=== PATIENT | male | born 1950 | race Caucasian/White ===

== ENCOUNTER → 2018-01-27 10:08 | Outpatient (CLI) | payer MEDICARE, BC, SELFPAY ==
[2018-01-27 11:36] LABS: Add Manual Diff / Slide Review NO; Basophils Percent Auto 0.8 % (0-2); Eosinophils Percent Auto 4.1 % (2-4); Hematocrit 43.6 % (41-53); Hemoglobin 14.7 g/dL (13.5-17.5); Mean Corpuscular HGB Conc 33.8 % (30-36); Mean Corpuscular Hemoglobin 31.3 PG (26-34); Mean Corpuscular Volume 92.3 fL (80-100); Monocytes Percent Auto 10.3 % (3-14); Neutrophils Absolute Auto 3000 /uL (3000-5900); Neutrophils Percent Auto 43.8 % (50-75); Platelet Count 208 X10^3/uL (150-400); Red Blood Cell Count 4.72 X10^6/uL (4.5-5.9); Red Cell Distribution Width 13.5 % (11.6-14.8); White Blood Cell Count 6.8 X10^3/uL (4.5-11.0)
[2018-01-27 11:51] LABS: Hemoglobin A1C% w Est Avg Glu 6.9 % (4.0-6.0)
[2018-01-27 11:54] LABS: Alanine Aminotransferase 47 IU/L (21-72); Albumin 4.6 g/dL (3.5-5.0); Albumin Globulin Ratio 1.9 (1.0-2.8); Alkaline Phosphatase 71 U/L (38-126); Aspartate Aminotransferase 27 IU/L (17-59); BUN Creatinine Ratio 23.3 (6-22); Bilirubin Total 0.6 mg/dL (0.2-1.3); Blood Urea Nitrogen 21 mg/dL (9-20); Calcium 9.1 mg/dL (8.4-10.2); Carbon Dioxide 25 mmol/L (22-32); Chloride 104 mmol/L (98-107); Cholesterol 148 mg/dL (140-199); Estimated Glomerular Filt Rate > 60.0 mL/min (>60); Globulin 2.4 g/dL (1.7-4.1); Glucose 151 mg/dL (80-110); HDL Cholesterol 41 mg/dL (40-60); HEMOLYSIS < 15 (0-50); LDL Cholesterol Calculated 87 mg/dL (<100); Potassium 4.3 mmol/L (3.4-5.1); Sodium 143 mmol/L (137-145); Triglycerides 102 mg/dL (35-150)
[2018-01-27 13:25] LABS: Thyroid Stimulating Hormone 1.37 uIU/mL (0.47-4.68)
== END ==
PROVIDERS: PCP Family Medicine; Visit Provider Family Medicine
DX: E11.9 Type 2 diabetes mellitus without complications (principal)
CPT/HCPCS: 36415; 80053; 80061; 83036; 84443; 85025; G0103

== ENCOUNTER → 2018-06-10 10:20 | Outpatient (CLI) | payer MEDICARE, OTHER, SELFPAY ==
[2018-06-10 11:28] LABS: Hemoglobin A1C% w Est Avg Glu 6.7 % (4.0-6.0)
== END ==
PROVIDERS: PCP Family Medicine; Visit Provider Family Medicine
DX: E11.9 Type 2 diabetes mellitus without complications (principal)
CPT/HCPCS: 36415; 83036

== ENCOUNTER → 2019-09-04 09:18 | Outpatient (CLI) | payer MEDICARE, OTHER, SELFPAY ==
[2019-09-04 10:59] LABS: Hemoglobin A1C% w Est Avg Glu 12.3 % (4.0-6.0)
[2019-09-04 11:03] LABS: BUN Creatinine Ratio 22.2 (6-22); Blood Urea Nitrogen 16 mg/dL (9-20); Calcium 9.1 mg/dL (8.4-10.2); Carbon Dioxide 24 mmol/L (22-32); Chloride 100 mmol/L (98-107); Cholesterol 163 mg/dL (140-199); Estimated Glomerular Filt Rate > 60.0 mL/min (>60); Glucose 347 mg/dL (80-110); HDL Cholesterol 31 mg/dL (40-60); HEMOLYSIS < 15 (0-50); LDL Cholesterol Calculated 103 mg/dL (<100); Potassium 4.9 mmol/L (3.4-5.1); Sodium 134 mmol/L (137-145); Triglycerides 147 mg/dL (35-150)
[2019-09-04 11:32] LABS: Prostate Specific Antigen Scrn 0.556 ng/mL (0.1-4.0)
== END ==
PROVIDERS: PCP Family Medicine; Referring Provider Family Medicine; Visit Provider Family Medicine
DX: Z12.5 Encounter for screening for malignant neoplasm of prostate (principal); Z13.220 Encounter for screening for lipoid disorders; E11.9 Type 2 diabetes mellitus without complications; E78.2 Mixed hyperlipidemia; I10 Essential (primary) hypertension
CPT/HCPCS: 36415; 80048; 80061; 83036; G0103

== ENCOUNTER → 2019-11-14 09:48 | Outpatient (CLI) | payer MEDICARE, OTHER, SELFPAY ==
[2019-11-14 12:14] LABS: BUN Creatinine Ratio 20.5 (6-22); Blood Urea Nitrogen 17 mg/dL (9-20); Calcium 9.8 mg/dL (8.4-10.2); Carbon Dioxide 25 mmol/L (22-32); Chloride 102 mmol/L (98-107); Estimated Glomerular Filt Rate > 60.0 mL/min (>60); Glucose 114 mg/dL (80-110); HEMOLYSIS < 15 (0-50); Potassium 4.5 mmol/L (3.4-5.1); Sodium 136 mmol/L (137-145)
[2019-11-14 12:16] LABS: Hemoglobin A1C% w Est Avg Glu 7.3 % (4.0-6.0)
== END ==
PROVIDERS: PCP Family Medicine; Referring Provider Family Medicine; Visit Provider Family Medicine
DX: E11.9 Type 2 diabetes mellitus without complications (principal)
CPT/HCPCS: 36415; 80048; 83036

== ENCOUNTER → 2020-02-07 11:44 | Outpatient (CLI) | payer MEDICARE, OTHER, SELFPAY ==
[2020-02-07 12:48] LABS: Hemoglobin A1C% w Est Avg Glu 5.6 % (4.0-6.0)
[2020-02-07 13:12] LABS: BUN Creatinine Ratio 18.7 (6-22); Blood Urea Nitrogen 17 mg/dL (9-20); Calcium 9.8 mg/dL (8.4-10.2); Carbon Dioxide 23 mmol/L (22-32); Chloride 102 mmol/L (98-107); Estimated Glomerular Filt Rate > 60.0 mL/min (>60); Glucose 112 mg/dL (80-110); HEMOLYSIS < 15 (0-50); Potassium 4.7 mmol/L (3.4-5.1); Sodium 137 mmol/L (137-145)
== END ==
PROVIDERS: PCP Family Medicine; Referring Provider Family Medicine; Visit Provider Family Medicine
DX: E11.9 Type 2 diabetes mellitus without complications (principal)
CPT/HCPCS: 36415; 80048; 83036

== ENCOUNTER → 2020-05-07 11:14 | Outpatient (CLI) | payer MEDICARE, OTHER, SELFPAY ==
[2020-05-07 12:23] LABS: Hemoglobin A1C% w Est Avg Glu 5.3 % (4.0-6.0)
[2020-05-07 12:52] LABS: BUN Creatinine Ratio 26.7 (6-22); Blood Urea Nitrogen 20 mg/dL (9-20); Calcium 9.2 mg/dL (8.4-10.2); Carbon Dioxide 27 mmol/L (22-32); Chloride 101 mmol/L (98-107); Cholesterol 120 mg/dL (140-199); Estimated Glomerular Filt Rate > 60.0 mL/min (>60); Glucose 134 mg/dL (80-110); HDL Cholesterol 53 mg/dL (40-60); HEMOLYSIS < 15 (0-50); LDL Cholesterol Calculated 55 mg/dL (<100); Potassium 4.5 mmol/L (3.4-5.1); Sodium 136 mmol/L (137-145); Triglycerides 61 mg/dL (35-150)
== END ==
PROVIDERS: Family Medicine; PCP Family Medicine; Referring Provider Family Medicine; Visit Provider Family Medicine
DX: E11.9 Type 2 diabetes mellitus without complications (principal); I10 Essential (primary) hypertension; E78.2 Mixed hyperlipidemia
CPT/HCPCS: 36415; 80048; 80061; 83036

== ENCOUNTER → 2020-11-07 11:07 | Outpatient (CLI) | payer MEDICARE, OTHER, SELFPAY ==
[2020-11-07 13:58] LABS: Hemoglobin A1C% w Est Avg Glu 5.5 % (4.0-6.0)
== END ==
PROVIDERS: PCP Family Medicine; Referring Provider Family Medicine; Visit Provider Family Medicine
DX: E11.9 Type 2 diabetes mellitus without complications (principal)
CPT/HCPCS: 36415; 83036

== ENCOUNTER → 2021-06-12 11:17 | Outpatient (CLI) | payer MEDICARE, OTHER, SELFPAY ==
[2021-06-12 12:07] LABS: Add Manual Diff / Slide Review NO; Basophils Absolute Auto 0 /uL (0-100); Basophils Percent Auto 0.6 % (0-2); Eosinophils Absolute Auto 200 /uL (0-450); Hematocrit 40.6 % (41-53); Hemoglobin 13.6 g/dL (13.5-17.5); Lymphocytes Absolute Auto 2400 /uL (1100-4500); Lymphocytes Percent Auto 45.4 % (25-40); Mean Corpuscular HGB Conc 33.4 % (30-36); Mean Corpuscular Hemoglobin 31.3 PG (26-34); Mean Corpuscular Volume 93.5 fL (80-100); Monocytes Absolute Auto 600 /uL (0-900); Monocytes Percent Auto 10.7 % (3-14); Neutrophils Absolute Auto 2200 /uL (1500-7000); Neutrophils Percent Auto 40.3 % (50-75); Platelet Count 189 X10^3/uL (150-400); Red Blood Cell Count 4.34 X10^6/uL (4.5-5.9); Red Cell Distribution Width 15.1 % (11.6-14.8); White Blood Cell Count 5.4 X10^3/uL (4.5-11.0)
[2021-06-12 12:15] LABS: Hemoglobin A1C% w Est Avg Glu 5.3 % (4.0-6.0)
[2021-06-12 12:24] LABS: Alanine Aminotransferase 23 IU/L (<50); Albumin 4.8 g/dL (3.5-5.0); Alkaline Phosphatase 84 U/L (38-126); Aspartate Aminotransferase 24 IU/L (17-59); BUN Creatinine Ratio 18.7 (6-22); Bilirubin Total 0.6 mg/dL (0.2-1.3); Blood Urea Nitrogen 17 mg/dL (9-20); Calcium 9.3 mg/dL (8.4-10.2); Carbon Dioxide 28 mmol/L (22-32); Chloride 103 mmol/L (98-107); Cholesterol 176 mg/dL (140-199); Estimated Glomerular Filt Rate > 60.0 mL/min (>60); Globulin 2.4 g/dL (1.7-4.1); Glucose 118 mg/dL (80-110); HDL Cholesterol 61 mg/dL (40-60); HEMOLYSIS < 15 (0-50); LDL Cholesterol Calculated 103 mg/dL (<100); Potassium 4.3 mmol/L (3.4-5.1); Sodium 138 mmol/L (137-145); Total Protein 7.2 g/dL (6.3-8.2); Triglycerides 60 mg/dL (35-150)
[2021-06-12 12:54] LABS: Prostate Specific Antigen Scrn 0.664 ng/mL (0.1-4.0)
[2021-06-12 13:10] LABS: TSH w/ Reflex to FT4 1.44 uIU/mL (0.47-4.68)
== END ==
PROVIDERS: PCP Family Medicine; Referring Provider Family Medicine; Visit Provider Family Medicine
DX: E11.9 Type 2 diabetes mellitus without complications (principal); E78.2 Mixed hyperlipidemia; I10 Essential (primary) hypertension; Z12.5 Encounter for screening for malignant neoplasm of prostate
CPT/HCPCS: 36415; 80053; 80061; 83036; 84443; 85025; G0103

== ENCOUNTER → 2021-11-07 10:10 | Outpatient (CLI) | payer MEDICARE, OTHER, SELFPAY ==
[2021-11-07 11:13] LABS: Hemoglobin A1C% w Est Avg Glu 5.5 % (4.0-6.0)
[2021-11-07 12:08] LABS: Prostate Specific Antigen Scrn 0.611 ng/mL (0.1-4.0)
== END ==
PROVIDERS: PCP Family Medicine; Referring Provider Family Medicine; Visit Provider Family Medicine
DX: E11.9 Type 2 diabetes mellitus without complications (principal); Z12.5 Encounter for screening for malignant neoplasm of prostate; R35.1 Nocturia
CPT/HCPCS: 36415; 83036; G0103

== ENCOUNTER → 2021-12-22 12:02 | Outpatient (CLI) | payer MEDICARE, OTHER, SELFPAY ==
[2021-12-22 13:45] LABS: Alanine Aminotransferase 23 IU/L (<50); Albumin 4.3 g/dL (3.5-5.0); Albumin Globulin Ratio 1.6 (1.0-2.8); Alkaline Phosphatase 80 U/L (38-126); Aspartate Aminotransferase 23 IU/L (17-59); BUN Creatinine Ratio 22.1 (6-22); Bilirubin Total 0.5 mg/dL (0.2-1.3); Blood Urea Nitrogen 32 mg/dL (9-20); Calcium 9.3 mg/dL (8.4-10.2); Carbon Dioxide 23 mmol/L (22-32); Chloride 106 mmol/L (98-107); Estimated Glomerular Filt Rate 51 mL/min (>60); Globulin 2.7 g/dL (1.7-4.1); Glucose 124 mg/dL (80-110); HEMOLYSIS < 15 (0-50); Potassium 4.6 mmol/L (3.4-5.1); Sodium 138 mmol/L (137-145)
[2021-12-22 14:11] LABS: Appearance Urine UA CLEAR; Bilirubin Urine UA NEGATIVE (NEGATIVE); Color Urine UA YELLOW; Glucose Urine UA NEGATIVE (Negative); Ketones Urine UA NEGATIVE (NEGATIVE); Leukocyte Esterase Urine UA NEGATIVE (NEGATIVE); Nitrite Urine UA NEGATIVE (Negative); Occult Blood Urine UA NEGATIVE (Negative); Protein Urine UA NEGATIVE (Negative); Specific Gravity Urine UA <=1.005 (1.000-1.035); Urobilinogen Urine UA 0.2 E.U./dL (0.2)
[2021-12-22 14:22] LABS: Bacteria Urine None Seen; Culture Indicated Urine Cult Not Indicated; RBC Urine None Seen (0-5/HPF); Squamous Epithelial Cell Urine 0-1 /HPF (0-5/HPF); WBC Urine 0-1/HPF (0-5/HPF)
== END ==
PROVIDERS: PCP Family Medicine; Referring Provider Family Medicine; Visit Provider Family Medicine
DX: E11.9 Type 2 diabetes mellitus without complications (principal); I10 Essential (primary) hypertension; R35.1 Nocturia
CPT/HCPCS: 36415; 80053; 81001

== ENCOUNTER → 2022-01-13 11:07 | Outpatient (CLI) | payer MEDICARE, OTHER, SELFPAY ==
[2022-01-13 14:51] LABS: Microalbumin Urine Random < 0.6 mg/dL (0-1.6)
== END ==
PROVIDERS: PCP Family Medicine; Referring Provider Family Medicine; Visit Provider Family Medicine
DX: I10 Essential (primary) hypertension (principal)
CPT/HCPCS: 82043; 82570

== ENCOUNTER → 2022-02-03 15:28 | Outpatient (CLI) | payer MEDICARE, OTHER, SELFPAY ==
[2022-02-03 16:54] LABS: Alanine Aminotransferase 24 IU/L (<50); Albumin 4.9 g/dL (3.5-5.0); Albumin Globulin Ratio 1.8 (1.0-2.8); Alkaline Phosphatase 62 U/L (38-126); Aspartate Aminotransferase 21 IU/L (17-59); Bilirubin Total 0.5 mg/dL (0.2-1.3); Blood Urea Nitrogen 27 mg/dL (9-20); Calcium 10.1 mg/dL (8.4-10.2); Carbon Dioxide 25 mmol/L (22-32); Chloride 104 mmol/L (98-107); Estimated Glomerular Filt Rate 55 mL/min (>60); Globulin 2.8 g/dL (1.7-4.1); Glucose 132 mg/dL (80-110); HEMOLYSIS < 15 (0-50); Potassium 4.1 mmol/L (3.4-5.1); Sodium 141 mmol/L (137-145); Total Protein 7.7 g/dL (6.3-8.2)
== END ==
PROVIDERS: PCP Family Medicine; Referring Provider Family Medicine; Visit Provider Family Medicine
DX: I10 Essential (primary) hypertension (principal)
CPT/HCPCS: 80053

== ENCOUNTER → 2022-04-21 11:37 | Outpatient (CLI) | payer MEDICARE, OTHER, SELFPAY ==
[2022-04-21 14:15] LABS: Alanine Aminotransferase 21 IU/L (<50); Alkaline Phosphatase 84 U/L (38-126); Aspartate Aminotransferase 20 IU/L (17-59); BUN Creatinine Ratio 24.6 (6-22); Bilirubin Total 0.4 mg/dL (0.2-1.3); Blood Urea Nitrogen 29 mg/dL (9-20); Carbon Dioxide 23 mmol/L (22-32); Chloride 105 mmol/L (98-107); Estimated Glomerular Filt Rate > 60 mL/min (>60); Glucose 123 mg/dL (80-110); HEMOLYSIS < 15 (0-50); Potassium 4.5 mmol/L (3.4-5.1); Sodium 139 mmol/L (137-145)
[2022-04-24 16:13] LABS: Albumin 4.4 g/dL (3.5-5.0); Albumin Globulin Ratio 1.7 (1.0-2.8); Globulin 2.6 g/dL (1.7-4.1)
== END ==
PROVIDERS: PCP Family Medicine; Referring Provider Urology; Visit Provider Urology
DX: E11.9 Type 2 diabetes mellitus without complications (principal); R79.89 Other specified abnormal findings of blood chemistry; R39.9 Unspecified symptoms and signs involving the genitourinary system; N40.1 Benign prostatic hyperplasia with lower urinary tract symptoms; R39.14 Feeling of incomplete bladder emptying; Z77.22 Contact with and (suspected) exposure to environmental tobacco smoke (acute) (chronic); Z87.891 Personal history of nicotine dependence
CPT/HCPCS: 36415; 51798; 80053; 81002; 99214

== ENCOUNTER → 2022-04-24 17:03 | Outpatient (CLI) | payer MEDICARE, OTHER, SELFPAY ==
--- NOTE | 2022-04-24 17:05 | DI.US.S_ITS ---
PROCEDURE: US RENAL COMPLETE INDICATIONS: URINE RETENTION RULE OUT HYDRONEPHROSIS TECHNIQUE: Real-time scanning was performed of the kidneys and bladder, with image documentation. COMPARISON: None. FINDINGS: Kidneys: Moderate bilateral hydronephrosis. Normal size of the kidneys with normal cortical thickness. Simple appearing cyst in the right kidney measuring 2 cm. Bladder: Distended measuring approximately 850 mL in volume. Patient was unable to void. No bladder wall thickening or mass. Miscellaneous: No free pelvic fluid. IMPRESSION: Moderate bilateral hydronephrosis. Dictated by: Braydon Gil M.D. on 04/28/2022 at 8:37 Approved by: Braydon Gil M.D. on 04/28/2022 at 8:39
== END ==
PROVIDERS: PCP Family Medicine; Referring Provider Urology; Visit Provider Urology
DX: N13.30 Unspecified hydronephrosis (principal); N28.1 Cyst of kidney, acquired; R33.9 Retention of urine, unspecified
CPT/HCPCS: 76770

== ENCOUNTER → 2022-05-07 09:18 | Outpatient (CLI) | payer MEDICARE, OTHER, SELFPAY | PROVIDERS: PCP Family Medicine; Visit Provider Urology | DX: N13.30 Unspecified hydronephrosis (principal); N40.1 Benign prostatic hyperplasia with lower urinary tract symptoms; R33.9 Retention of urine, unspecified; R39.14 Feeling of incomplete bladder emptying; R39.9 Unspecified symptoms and signs involving the genitourinary system; Z87.891 Personal history of nicotine dependence; Z77.22 Contact with and (suspected) exposure to environmental tobacco smoke (acute) (chronic); Z87.448 Personal history of other diseases of urinary system | CPT/HCPCS: 51702; 51798; 87086; 99214 ==

== ENCOUNTER → 2022-05-20 09:33 | Outpatient (CLI) | payer MEDICARE, OTHER, SELFPAY | PROVIDERS: PCP Family Medicine; Visit Provider Urology | DX: R39.9 Unspecified symptoms and signs involving the genitourinary system (principal) | CPT/HCPCS: 87086 ==

== ENCOUNTER → 2022-05-20 10:33 | Outpatient (CLI) | payer MEDICARE, OTHER, SELFPAY ==
[2022-05-20 11:44] LABS: BUN Creatinine Ratio 22.3 (6-22); Blood Urea Nitrogen 25 mg/dL (9-20); Carbon Dioxide 24 mmol/L (22-32); Chloride 103 mmol/L (98-107); Estimated Glomerular Filt Rate > 60 mL/min (>60); Glucose 122 mg/dL (80-110); HEMOLYSIS < 15 (0-50); Potassium 4.2 mmol/L (3.4-5.1); Sodium 138 mmol/L (137-145)
== END ==
PROVIDERS: PCP Family Medicine; Referring Provider Urology; Visit Provider Urology
DX: N13.30 Unspecified hydronephrosis (principal); N40.1 Benign prostatic hyperplasia with lower urinary tract symptoms; R33.9 Retention of urine, unspecified; R39.9 Unspecified symptoms and signs involving the genitourinary system; Z97.8 Presence of other specified devices; Z87.448 Personal history of other diseases of urinary system
CPT/HCPCS: 36415; 52000; 76872; 80048; 87086

== ENCOUNTER → 2022-05-26 13:04 | Outpatient (CLI) | payer MEDICARE, OTHER, SELFPAY ==
--- NOTE | 2022-05-26 13:06 | DI.US.S_ITS ---
PROCEDURE: US RENAL COMPLETE INDICATIONS: Bilateral hydronephrosis TECHNIQUE: Real-time scanning was performed of the kidneys and bladder, with image documentation. COMPARISON: [facility], , US RENAL COMPLETE, 04/24/2022, 17:11. FINDINGS: Kidneys: Kidneys are normal in size. Right kidney measures 10.7 cm long; left kidney measures 12.3 cm long. Right renal cortical thickness is 1.7 cm; left renal cortical thickness is 1.8 cm. Renal cortical echotexture is normal. A 3.5 cm cyst arises from the lower pole of the right kidney. Interval resolution of hydronephrosis. No visible nephrolithiasis. No suspicious solid mass lesions. Bladder: The urinary bladder is decompressed with a Ha catheter. Miscellaneous: No free pelvic fluid. IMPRESSION: 1. Interval resolution of severe bilateral hydronephrosis. 2. Ha catheter in place decompressing the urinary bladder. Dictated by: Lillian Nicholson M.D. on 05/26/2022 at 18:09 Approved by: Lillian Nicholson M.D. on 05/26/2022 at 18:11
== END ==
PROVIDERS: PCP Family Medicine; Referring Provider Urology; Visit Provider Urology
DX: N13.30 Unspecified hydronephrosis (principal); R33.9 Retention of urine, unspecified; N28.1 Cyst of kidney, acquired
CPT/HCPCS: 76770

== ENCOUNTER → 2022-06-15 14:14 | Outpatient (CLI) | payer MEDICARE, OTHER, SELFPAY ==
[2022-06-15 14:58] LABS: Hemoglobin A1C% w Est Avg Glu 5.4 % (4.0-6.0)
[2022-06-15 15:12] LABS: Cholesterol 127 mg/dL (140-199); HDL Cholesterol 30 mg/dL (40-60); LDL Cholesterol Calculated 76 mg/dL (<100); Triglycerides 104 mg/dL (35-150)
[2022-06-15 15:40] LABS: TSH w/ Reflex to FT4 1.07 uIU/mL (0.47-4.68)
[2022-06-15 17:29] LABS: Creatinine Urine Random 91.1 mg/dL
[2022-06-15 18:23] LABS: Microalbumi Creatinin Ratio Ur 5477.4 ug/mg CR (<30)
== END ==
PROVIDERS: PCP Family Medicine; Referring Provider Family Medicine; Visit Provider Family Medicine
DX: E11.9 Type 2 diabetes mellitus without complications (principal); E78.2 Mixed hyperlipidemia; I10 Essential (primary) hypertension; N13.30 Unspecified hydronephrosis
CPT/HCPCS: 36415; 80061; 82043; 82570; 83036; 84443

== ENCOUNTER → 2022-06-16 08:43 | Outpatient (CLI) | payer MEDICARE, OTHER, SELFPAY | PROVIDERS: PCP Family Medicine; Visit Provider Urology | DX: R33.9 Retention of urine, unspecified (principal); R39.9 Unspecified symptoms and signs involving the genitourinary system | CPT/HCPCS: 87077; 87086; 87186 ==

== ENCOUNTER 2022-06-23 06:02 | Day surgery (SDC) | payer MEDICARE, OTHER, SELFPAY ==
[2022-06-16 08:57] VITALS: BMI 24.5
[2022-06-23] VITALS (7 sets, daily range): BP systolic 114–139; BP diastolic 59–76; PULSE 65–98; RESP 8–20; TEMP 36.3–36.8; O2SAT 94–99; BMI 24.5
--- NOTE | 2022-06-23 07:20 | SUR.OPER ---
Lithotomy on padded OR bed, head on pillow, arms secured on padded arm boards at <90 degrees abduction. Legs secured in padded yellow fins stirrups.
[2022-06-23 07:21] LABS: COVID19 -Nasal RAPID Negative (Negative)
[2022-06-23] MEDS: LACTATED RINGERS 1,000 ML 42 ML IV (07:23)
--- NOTE | 2022-06-23 07:44 | PM.PREOP ---
Pre-operative Note COVID-19 COVID-19 status: Not tested Criteria for continued procedure: Delay expected to result in less-positive ultimate med/surg outcome and Non-surgical alternatives not available or appropriate per current SOC Interval Note History & Physical reviewed/Exam performed by Physician: Yes Changes to H&P: No
--- NOTE | 2022-06-23 07:46 | PM.PREOP ---
Pre-operative Note COVID-19 COVID-19 status: Negative Result date/Date tested (Pos, Neg/Pending): 06/23/22 Criteria for continued procedure: Delay expected to result in less-positive ultimate med/surg outcome and Non-surgical alternatives not available or appropriate per current SOC Interval Note History & Physical reviewed/Exam performed by Physician: Yes Changes to H&P: No
[2022-06-23] MEDS: CEFAZOLIN 2 GM/100 ML PREMIX 100 ML IV (08:08)
--- NOTE | 2022-06-23 09:06 | PM.OP.1 ---
Procedure & Clinicians Procedure: Photo vaporization of prostate Same procedure as scheduled: Yes Indications: This is a 72-year-old male who presented with urinary retention, bilateral hydronephrosis and evidence of obstructive uropathy. Was found to have an obstructing prostate has failed multiple voiding trials and maximal medical therapy. On presents this time for photo vaporization of the prostate. Patient had a large amount in his bladder and is aware that his bladder may never return to normal function. However we will eliminate the obstruction by his prostate and see how he fares. Surgeon: Edgardo Atkinson Click Yes if Unassisted: Yes Anesthesia Type: General Operative Notes Findings: Urethral meatus is normal urethra is normal. Sphincter as well coapted prostate exhibits severe obstructive character with an elevated bladder neck but no bulging into the bladder. Ureteral orifices in normal position with clear efflux. There is bullous edema in the bladder consistent with his Ha catheter. There are no other abnormalities in his bladder save severe trabeculation cellules. At the end of the procedure with minimal pressure the patient had a vigorous stream. Patient received total laser energy of 132,427 joules in a total laser time of 13 minutes 46 seconds. Prostate was widely patent and open at the end of the procedure. Closure Type: not applicable Specimen(s): none sent Applied: catheter (Twenty-two Hungarian 5 cc Ha catheter left in place to gravity drainage with 14 cc of sterile water in the balloon.) Estimated Blood Loss (mL): 5 Blood products transfused: none Procedure in detail: Procedure in detail: After informed consent was obtained, the patient was identified and brought to the operating room. He was then placed in the supine position on the table where anesthesia was induced and maintained. Ensuring an adequate level of anesthesia the patient was transitioned to the lithotomy position. Once in lithotomy position he was prepped, draped, prepared for Transurethral procedure. After prepping draping time-out and ensuring an adequate level of anesthesia the laser resectoscope was passed through the urethra prostate and into the bladder under direct vision cystoscopy was performed. The laser fiber was inserted and the procedure began in the following fashion the level of the verumontanum was marked on the lateral lobes as the distal extent of resection. The elevated bladder neck was then sequentially vaporized to the surgical capsule. The lateral lobes which were obstructive were then vaporized from the bladder neck to the verumontanum until the prostatic fossa was relieved of its obstruction. The total time and energy as noted above. At this point the laser was placed on standby the scope advanced into the bladder the ureteral orifices and bladder observed and were without injury. Bladder was then left full the scope was removed and a vigorous stream was noted. Hemostasis was good the 22 Hungarian 5 cc Ha catheter was passed through the urethra prostate and into the bladder without difficulty or resistance the balloon was filled to 14 cc of sterile water the catheter was placed to gravity drainage. The patient was awakened and transferred to the postanesthesia care unit for recovery having tolerated the procedure well there were no complications Complications: none Post-operative Condition: stable Disposition: PACU Plan for aftercare: Patient to follow-up in the office tomorrow morning for catheter removal and voiding trial and then in approximately 10 days for follow-up with me.
[2022-06-23] MEDS: ACETAMINOPHEN 325 MG TABLET 650 MG PO (09:33)
[2022-06-23] MEDS: PHENAZOPYRIDINE 100 MG TABLET 200 MG PO (09:52)
[2022-06-23] MEDS: OXYBUTYNIN 5 MG TABLET PO (09:52)
--- NOTE | 2022-06-23 10:46 | SUR.PHASEII ---
Pt has been dressed and IV removed, meds administered for bladder discomfort. Phase II interventions are complete at 1008. Pt awaits his ride at arriving approx. 1100. He is provided a chair and some drink. Observation by nursing staff continues until his ride arrives.
== END 2022-06-23 12:28 | disposition home or self-care (01) ==
PROVIDERS: PCP Family Medicine; Referring Provider Urology; Visit Provider Urology
PROC: (CPT 52648; principal; 2022-06-23 07:45)
DX: N40.1 Benign prostatic hyperplasia with lower urinary tract symptoms (principal); R33.8 Other retention of urine; N13.30 Unspecified hydronephrosis; N32.0 Bladder-neck obstruction; Z20.822 Contact with and (suspected) exposure to COVID-19
CPT/HCPCS: 52648; 87635; C9803; J0690; J1100; J2405; J2704; J3010

== ENCOUNTER → 2022-06-24 15:06 | Outpatient (CLI) | payer MEDICARE, OTHER, SELFPAY | PROVIDERS: PCP Family Medicine; Visit Provider Urology | DX: N39.0 Urinary tract infection, site not specified (principal); R33.9 Retention of urine, unspecified | CPT/HCPCS: 51702; 51798; 87086 ==

== ENCOUNTER → 2022-07-03 09:52 | Outpatient (CLI) | payer MEDICARE, OTHER, SELFPAY ==
--- NOTE | 2022-07-03 09:53 | DI.US.S_ITS ---
PROCEDURE: US RENAL COMPLETE INDICATIONS: HISTORY OF BILATER HYDRONEPHROSIS TECHNIQUE: Real-time scanning was performed of the kidneys and bladder, with image documentation. COMPARISON: [facility], , US RENAL COMPLETE, 05/26/2022, 13:20. FINDINGS: Kidneys: Kidneys are normal in size. Right kidney measures 9.8 cm long; left kidney measures 11.8 cm long. Right renal cortical thickness is 1.5 cm; left renal cortical thickness is 1.6 cm. Renal cortical echotexture is normal. No hydronephrosis or nephrolithiasis. No suspicious solid mass lesions. Right renal cystic lesion with a thin internal septation measuring 2.9 centimeters; Bosniak 2 equaling to requiring no further follow-up. Bladder: Pre-void bladder volume is 389 mL. Post-void residual is 389 mL. Pre-void images demonstrate a posterior projection of the bladder wall measuring 2.1 x 2.5 x 2.2 centimeter. On pre-void images, both ureteral jets are noted with color Doppler interrogation. (Of note, ureteral jets may not be detectable in up to 25% of cases due to insufficient differences in specific gravity between ureteral and bladder urine). Miscellaneous: No free pelvic fluid. IMPRESSION: Possible bladder mass versus prostate hypertrophy, given papillary projection within the bladder wall. The irregular guerra favors malignancy over hypertrophy. Recommend urology consultation for further evaluation. No hydronephrosis. Dictated by: Sree Thurman M.D. on 07/03/2022 at 15:16 Approved by: Sree Thurman M.D. on 07/03/2022 at 15:18
== END ==
PROVIDERS: PCP Family Medicine; Referring Provider Urology; Visit Provider Urology
DX: N13.30 Unspecified hydronephrosis (principal); Z87.448 Personal history of other diseases of urinary system
CPT/HCPCS: 76770

== ENCOUNTER → 2022-07-13 07:20 | Outpatient (CLI) | payer MEDICARE, OTHER, SELFPAY ==
[2022-07-13 09:32] LABS: BUN Creatinine Ratio 21.6 (6-22); Blood Urea Nitrogen 29 mg/dL (9-20); Calcium 8.6 mg/dL (8.4-10.2); Carbon Dioxide 23 mmol/L (22-32); Chloride 102 mmol/L (98-107); Estimated Glomerular Filt Rate 56 mL/min (>60); Glucose 120 mg/dL (80-110); HEMOLYSIS < 15 (0-50); Potassium 4.1 mmol/L (3.4-5.1); Sodium 136 mmol/L (137-145)
== END ==
PROVIDERS: PCP Family Medicine; Referring Provider Urology; Visit Provider Urology
DX: N13.30 Unspecified hydronephrosis (principal); N40.1 Benign prostatic hyperplasia with lower urinary tract symptoms; N13.9 Obstructive and reflux uropathy, unspecified; N39.0 Urinary tract infection, site not specified; R33.9 Retention of urine, unspecified; R39.9 Unspecified symptoms and signs involving the genitourinary system; R39.14 Feeling of incomplete bladder emptying; R79.89 Other specified abnormal findings of blood chemistry; Z87.448 Personal history of other diseases of urinary system; Z77.22 Contact with and (suspected) exposure to environmental tobacco smoke (acute) (chronic); Z87.891 Personal history of nicotine dependence
CPT/HCPCS: 36415; 51798; 80048; 81002; 87086; 99214

== ENCOUNTER → 2022-07-23 15:01 | Outpatient (CLI) | payer MEDICARE, OTHER, SELFPAY ==
[2022-07-23 15:56] LABS: Blood Urea Nitrogen 29 mg/dL (9-20); Calcium 9.3 mg/dL (8.4-10.2); Carbon Dioxide 25 mmol/L (22-32); Chloride 105 mmol/L (98-107); Estimated Glomerular Filt Rate 45 mL/min (>60); Glucose 114 mg/dL (80-110); HEMOLYSIS < 15 (0-50); Potassium 4.2 mmol/L (3.4-5.1); Sodium 138 mmol/L (137-145)
== END ==
PROVIDERS: PCP Family Medicine; Referring Provider Urology; Visit Provider Urology
DX: N13.30 Unspecified hydronephrosis (principal); R33.9 Retention of urine, unspecified; R79.89 Other specified abnormal findings of blood chemistry; Z87.448 Personal history of other diseases of urinary system; Z87.891 Personal history of nicotine dependence
CPT/HCPCS: 36415; 51798; 80048

== ENCOUNTER → 2022-07-31 11:54 | Outpatient (CLI) | payer MEDICARE, OTHER, SELFPAY ==
[2022-07-31 15:16] LABS: BUN Creatinine Ratio 22.6 (6-22); Blood Urea Nitrogen 30 mg/dL (9-20); Calcium 8.9 mg/dL (8.4-10.2); Carbon Dioxide 22 mmol/L (22-32); Chloride 107 mmol/L (98-107); Estimated Glomerular Filt Rate 56 mL/min (>60); Glucose 116 mg/dL (80-110); HEMOLYSIS < 15 (0-50); Potassium 4.5 mmol/L (3.4-5.1); Sodium 136 mmol/L (137-145)
== END ==
PROVIDERS: PCP Family Medicine; Referring Provider Urology; Visit Provider Urology
DX: N13.30 Unspecified hydronephrosis (principal)
CPT/HCPCS: 36415; 80048

== ENCOUNTER → 2022-08-06 11:00 | Outpatient (CLI) | payer MEDICARE, OTHER, SELFPAY ==
[2022-08-06 12:37] LABS: Blood Urea Nitrogen 29 mg/dL (9-20); Calcium 9.1 mg/dL (8.4-10.2); Carbon Dioxide 25 mmol/L (22-32); Chloride 103 mmol/L (98-107); Estimated Glomerular Filt Rate 57 mL/min (>60); Glucose 115 mg/dL (80-110); HEMOLYSIS < 15 (0-50); Potassium 4.2 mmol/L (3.4-5.1); Sodium 138 mmol/L (137-145)
== END ==
PROVIDERS: PCP Family Medicine; Referring Provider Urology; Visit Provider Urology
DX: R79.89 Other specified abnormal findings of blood chemistry (principal); Z87.448 Personal history of other diseases of urinary system
CPT/HCPCS: 36415; 80048

== ENCOUNTER → 2022-08-07 08:11 | Outpatient (CLI) | payer MEDICARE, OTHER, SELFPAY | PROVIDERS: PCP Family Medicine; Visit Provider Urology | DX: N40.1 Benign prostatic hyperplasia with lower urinary tract symptoms (principal); N39.0 Urinary tract infection, site not specified; N13.30 Unspecified hydronephrosis; R39.14 Feeling of incomplete bladder emptying; R33.9 Retention of urine, unspecified; R39.9 Unspecified symptoms and signs involving the genitourinary system; R79.89 Other specified abnormal findings of blood chemistry; Z87.448 Personal history of other diseases of urinary system; Z87.891 Personal history of nicotine dependence; Z77.22 Contact with and (suspected) exposure to environmental tobacco smoke (acute) (chronic) | CPT/HCPCS: 51798; 81002; 87086; 99214 ==

== ENCOUNTER → 2022-08-19 08:20 | Outpatient (CLI) | payer MEDICARE, OTHER, SELFPAY ==
[2022-08-19 10:41] LABS: BUN Creatinine Ratio 20.3 (6-22); Blood Urea Nitrogen 29 mg/dL (9-20); Calcium 9.7 mg/dL (8.4-10.2); Carbon Dioxide 27 mmol/L (22-32); Chloride 103 mmol/L (98-107); Estimated Glomerular Filt Rate 52 mL/min (>60); Glucose 105 mg/dL (80-110); HEMOLYSIS < 15 (0-50); Potassium 4.3 mmol/L (3.4-5.1); Sodium 136 mmol/L (137-145)
== END ==
PROVIDERS: PCP Family Medicine; Referring Provider Urology; Visit Provider Urology
DX: R79.89 Other specified abnormal findings of blood chemistry (principal)
CPT/HCPCS: 36415; 80048

== ENCOUNTER → 2022-08-25 09:20 | Outpatient (CLI) | payer MEDICARE, OTHER, SELFPAY ==
[2022-08-25 09:40] LABS: Appearance Urine UA CLOUDY; Bilirubin Urine UA NEGATIVE (NEGATIVE); Color Urine UA YELLOW; Glucose Urine UA NEGATIVE (Negative); Ketones Urine UA NEGATIVE (NEGATIVE); Leukocyte Esterase Urine UA 3+ (NEGATIVE); Nitrite Urine UA POSITIVE (Negative); Occult Blood Urine UA 2+ (Negative); Protein Urine UA 1+ (Negative); Specific Gravity Urine UA 1.015 (1.000-1.035); Urobilinogen Urine UA 0.2 E.U./dL (0.2)
[2022-08-25 09:48] LABS: Bacteria Urine Many (>30); Culture Indicated Urine Specimen Cultured; RBC Urine 0-1/HPF (0-5/HPF); Squamous Epithelial Cell Urine 0-1 /HPF (0-5/HPF); WBC Urine >100/HPF (0-5/HPF)
[2022-08-25 10:15] LABS: BUN Creatinine Ratio 20.5 (6-22); Blood Urea Nitrogen 24 mg/dL (9-20); Carbon Dioxide 24 mmol/L (22-32); Chloride 103 mmol/L (98-107); Estimated Glomerular Filt Rate > 60 mL/min (>60); Glucose 123 mg/dL (80-110); HEMOLYSIS < 15 (0-50); Potassium 3.7 mmol/L (3.4-5.1); Sodium 135 mmol/L (137-145)
== END ==
PROVIDERS: PCP Family Medicine; Referring Provider Urology; Visit Provider Urology
DX: N39.0 Urinary tract infection, site not specified (principal); R33.9 Retention of urine, unspecified; R39.9 Unspecified symptoms and signs involving the genitourinary system; R79.89 Other specified abnormal findings of blood chemistry
CPT/HCPCS: 36415; 80048; 81001; 87077; 87086; 87186

== ENCOUNTER → 2022-09-01 11:17 | Outpatient (CLI) | payer MEDICARE, OTHER, SELFPAY ==
[2022-09-01 12:20] LABS: Creatinine Urine Random 46.5 mg/dL
[2022-09-01 12:29] LABS: Microalbumi Creatinin Ratio Ur 53.7 ug/mg CR (<30); Microalbumin Urine Random 2.5 mg/dL (0-1.6)
[2022-09-01 12:40] LABS: Alanine Aminotransferase 18 IU/L (<50); Albumin 4.4 g/dL (3.5-5.0); Albumin Globulin Ratio 1.7 (1.0-2.8); Alkaline Phosphatase 105 U/L (38-126); Aspartate Aminotransferase 18 IU/L (17-59); Bilirubin Total 0.2 mg/dL (0.2-1.3); Blood Urea Nitrogen 26 mg/dL (9-20); Calcium 9.1 mg/dL (8.4-10.2); Carbon Dioxide 24 mmol/L (22-32); Chloride 101 mmol/L (98-107); Estimated Glomerular Filt Rate > 60 mL/min (>60); Globulin 2.6 g/dL (1.7-4.1); Glucose 113 mg/dL (80-110); HEMOLYSIS < 15 (0-50); Potassium 4.3 mmol/L (3.4-5.1); Sodium 137 mmol/L (137-145)
== END ==
PROVIDERS: PCP Family Medicine; Referring Provider Urology; Visit Provider Urology
DX: R79.89 Other specified abnormal findings of blood chemistry (principal); R33.9 Retention of urine, unspecified; Z87.448 Personal history of other diseases of urinary system; R39.9 Unspecified symptoms and signs involving the genitourinary system; E11.9 Type 2 diabetes mellitus without complications; N13.30 Unspecified hydronephrosis
CPT/HCPCS: 36415; 80053; 82043; 82570

== ENCOUNTER → 2022-10-13 10:28 | Outpatient (CLI) | payer MEDICARE, OTHER, SELFPAY ==
[2022-10-13 11:31] LABS: BUN Creatinine Ratio 22.5 (6-22); Blood Urea Nitrogen 25 mg/dL (9-20); Calcium 8.9 mg/dL (8.4-10.2); Carbon Dioxide 21 mmol/L (22-32); Chloride 105 mmol/L (98-107); Estimated Glomerular Filt Rate > 60 mL/min (>60); Glucose 104 mg/dL (80-110); HEMOLYSIS < 15 (0-50); Potassium 4.5 mmol/L (3.4-5.1); Sodium 136 mmol/L (137-145)
== END ==
PROVIDERS: PCP Family Medicine; Referring Provider Urology; Visit Provider Urology
DX: R79.89 Other specified abnormal findings of blood chemistry (principal)
CPT/HCPCS: 36415; 80048

== ENCOUNTER → 2022-10-15 13:16 | Outpatient (CLI) | payer MEDICARE, OTHER, SELFPAY ==
[2022-10-15 15:03] LABS: BUN Creatinine Ratio 17.2 (6-22); Blood Urea Nitrogen 20 mg/dL (9-20); Calcium 9.2 mg/dL (8.4-10.2); Carbon Dioxide 23 mmol/L (22-32); Chloride 104 mmol/L (98-107); Estimated Glomerular Filt Rate > 60 mL/min (>60); Glucose 104 mg/dL (80-110); HEMOLYSIS < 15 (0-50); Potassium 4.3 mmol/L (3.4-5.1); Sodium 136 mmol/L (137-145)
== END ==
PROVIDERS: PCP Family Medicine; Referring Provider Urology; Visit Provider Urology
DX: N40.1 Benign prostatic hyperplasia with lower urinary tract symptoms (principal); R39.14 Feeling of incomplete bladder emptying; R39.9 Unspecified symptoms and signs involving the genitourinary system; R79.89 Other specified abnormal findings of blood chemistry; R33.9 Retention of urine, unspecified; Z87.448 Personal history of other diseases of urinary system; Z77.22 Contact with and (suspected) exposure to environmental tobacco smoke (acute) (chronic); Z87.891 Personal history of nicotine dependence
CPT/HCPCS: 36415; 51798; 80048; 99214

== ENCOUNTER → 2023-02-26 11:10 | Outpatient (CLI) | payer MEDICARE, OTHER, SELFPAY ==
[2023-02-26 12:22] LABS: Blood Urea Nitrogen 49 mg/dL (9-20); Calcium 9.7 mg/dL (8.4-10.2); Carbon Dioxide 23 mmol/L (22-32); Chloride 101 mmol/L (98-107); Estimated Glomerular Filt Rate 53 mL/min (>60); Glucose 129 mg/dL (80-110); HEMOLYSIS < 15 (0-50); Potassium 3.5 mmol/L (3.4-5.1); Sodium 133 mmol/L (137-145)
== END ==
PROVIDERS: PCP Family Medicine; Referring Provider Urology; Visit Provider Urology
DX: Z87.448 Personal history of other diseases of urinary system (principal); R33.9 Retention of urine, unspecified
CPT/HCPCS: 36415; 80048

== ENCOUNTER → 2023-03-03 08:17 | Outpatient (CLI) | payer MEDICARE, OTHER, SELFPAY ==
[2023-03-03 12:06] LABS: BUN Creatinine Ratio 26.5 (6-22); Blood Urea Nitrogen 39 mg/dL (9-20); Calcium 9.6 mg/dL (8.4-10.2); Carbon Dioxide 22 mmol/L (22-32); Chloride 102 mmol/L (98-107); Estimated Glomerular Filt Rate 50 mL/min (>60); Glucose 124 mg/dL (80-110); HEMOLYSIS < 15 (0-50); Potassium 3.2 mmol/L (3.4-5.1); Sodium 134 mmol/L (137-145)
== END ==
PROVIDERS: PCP Family Medicine; Referring Provider Urology; Visit Provider Urology
DX: N30.01 Acute cystitis with hematuria (principal); N31.2 Flaccid neuropathic bladder, not elsewhere classified; N40.1 Benign prostatic hyperplasia with lower urinary tract symptoms; R39.14 Feeling of incomplete bladder emptying; R39.9 Unspecified symptoms and signs involving the genitourinary system; R79.89 Other specified abnormal findings of blood chemistry; Z87.442 Personal history of urinary calculi; Z87.448 Personal history of other diseases of urinary system; Z77.22 Contact with and (suspected) exposure to environmental tobacco smoke (acute) (chronic); Z87.891 Personal history of nicotine dependence
CPT/HCPCS: 36415; 51798; 80048; 81002; 87077; 87086; 87186; 99214

== ENCOUNTER → 2023-03-10 08:13 | Outpatient (CLI) | payer MEDICARE, OTHER, SELFPAY ==
[2023-03-10 09:24] LABS: BUN Creatinine Ratio 30.6 (6-22); Blood Urea Nitrogen 48 mg/dL (9-20); Calcium 9.4 mg/dL (8.4-10.2); Carbon Dioxide 22 mmol/L (22-32); Chloride 103 mmol/L (98-107); Estimated Glomerular Filt Rate 46 mL/min (>60); Glucose 131 mg/dL (80-110); HEMOLYSIS < 15 (0-50); Potassium 3.4 mmol/L (3.4-5.1); Sodium 136 mmol/L (137-145)
== END ==
PROVIDERS: PCP Family Medicine; Referring Provider Urology; Visit Provider Urology
DX: R79.89 Other specified abnormal findings of blood chemistry (principal)
CPT/HCPCS: 36415; 80048

== ENCOUNTER → 2023-03-23 11:41 | Outpatient (CLI) | payer MEDICARE, OTHER, SELFPAY ==
[2023-03-23 13:02] LABS: Blood Urea Nitrogen 51 mg/dL (9-20); Calcium 9.6 mg/dL (8.4-10.2); Carbon Dioxide 24 mmol/L (22-32); Chloride 103 mmol/L (98-107); Estimated Glomerular Filt Rate 49 mL/min (>60); Glucose 129 mg/dL (80-110); HEMOLYSIS < 15 (0-50); Potassium 3.1 mmol/L (3.4-5.1); Sodium 137 mmol/L (137-145)
--- NOTE | 2023-03-23 15:07 | DI.US.S_ITS ---
PROCEDURE: US RENAL COMPLETE INDICATIONS: INCREASED CREATININE TECHNIQUE: Real-time scanning was performed of the kidneys and bladder, with image documentation. COMPARISON: [facility], , US RENAL COMPLETE, 07/03/2022, 10:41. FINDINGS: Kidneys: Kidneys are normal in size. Right kidney measures 9.0 cm long; left kidney measures 10.8 cm long. Right renal cortical thickness is 1.4 cm; left renal cortical thickness is 1.8 cm. Renal cortical echotexture is normal. No hydronephrosis or nephrolithiasis. No suspicious solid mass lesions. Bladder: Pre-void bladder volume is 209.2 mL. Post-void residual is 226.9 mL. Bilateral ureteral jets are identified. Patient unable to void. Patient uses a urinary catheter at home to avoid period there is an apparent solid bladder mass measuring 2.4 x 1.6 x 1.2 cm. Miscellaneous: No free pelvic fluid. IMPRESSION: 1. Suspect bladder mass. 2. Normal sized kidneys with no evidence of hydronephrosis. 3. Patient unable to void, uses self catheterization at home period Dictated by: Charles Torrez M.D. on 03/23/2023 at 20:19 Approved by: Charles Torrez M.D. on 03/23/2023 at 20:22
== END ==
PROVIDERS: PCP Family Medicine; Referring Provider Urology; Visit Provider Urology
DX: N13.30 Unspecified hydronephrosis (principal); R79.89 Other specified abnormal findings of blood chemistry
CPT/HCPCS: 36415; 76770; 80048

== ENCOUNTER → 2023-04-09 16:25 | Outpatient (CLI) | payer MEDICARE, OTHER, SELFPAY ==
[2023-04-09 17:13] LABS: BUN Creatinine Ratio 19.1 (6-22); Blood Urea Nitrogen 18 mg/dL (9-20); Calcium 9.3 mg/dL (8.4-10.2); Carbon Dioxide 24 mmol/L (22-32); Chloride 106 mmol/L (98-107); Estimated Glomerular Filt Rate > 60 mL/min (>60); Glucose 101 mg/dL (80-110); HEMOLYSIS < 15 (0-50); Potassium 3.4 mmol/L (3.4-5.1); Sodium 138 mmol/L (137-145)
== END ==
PROVIDERS: PCP Family Medicine; Referring Provider Urology; Visit Provider Urology
DX: N31.2 Flaccid neuropathic bladder, not elsewhere classified (principal); N32.89 Other specified disorders of bladder; N40.1 Benign prostatic hyperplasia with lower urinary tract symptoms; R39.14 Feeling of incomplete bladder emptying; R79.89 Other specified abnormal findings of blood chemistry; Z87.448 Personal history of other diseases of urinary system; Z87.891 Personal history of nicotine dependence
CPT/HCPCS: 36415; 80048; 81002; 99214

== ENCOUNTER → 2023-04-21 12:29 | Outpatient (CLI) | payer MEDICARE, OTHER, SELFPAY | PROVIDERS: PCP Family Medicine; Visit Provider Urology | DX: N39.0 Urinary tract infection, site not specified (principal); R33.9 Retention of urine, unspecified | CPT/HCPCS: 52000; 81002; 87086 ==

== ENCOUNTER → 2023-06-02 11:07 | Outpatient (CLI) | payer MEDICARE, OTHER, SELFPAY ==
[2023-06-02 12:36] LABS: BUN Creatinine Ratio 20.6 (6-22); Blood Urea Nitrogen 26 mg/dL (9-20); Calcium 9.7 mg/dL (8.4-10.2); Carbon Dioxide 26 mmol/L (22-32); Chloride 105 mmol/L (98-107); Estimated Glomerular Filt Rate 60 mL/min (>60); Glucose 119 mg/dL (80-110); HEMOLYSIS < 15 (0-50); Potassium 4.2 mmol/L (3.4-5.1); Sodium 139 mmol/L (137-145)
== END ==
PROVIDERS: PCP Family Medicine; Referring Provider Urology; Visit Provider Urology
DX: R79.89 Other specified abnormal findings of blood chemistry (principal)
CPT/HCPCS: 36415; 80048

== ENCOUNTER 2023-06-18 18:49 | Inpatient (IN) | payer MEDICARE, OTHER, SELFPAY ==
[2023-06-18 19:02] VITALS: BP 171/78; PULSE 56; RESP 14; TEMP 37.3; O2SAT 100; BMI 23.3
[2023-06-18 19:35] LABS: Add Manual Diff / Slide Review NO; Basophils Absolute Auto 0 /uL (0-100); Basophils Percent Auto 0.3 % (0-2); Eosinophils Absolute Auto 0 /uL (0-450); Eosinophils Percent Auto 0.1 % (2-4); Hematocrit 35.4 % (41-53); Hemoglobin 11.8 g/dL (13.5-17.5); Lymphocytes Absolute Auto 1600 /uL (1100-4500); Lymphocytes Percent Auto 9.8 % (25-40); Mean Corpuscular HGB Conc 33.2 % (30-36); Mean Corpuscular Hemoglobin 30.5 PG (26-34); Mean Corpuscular Volume 91.9 fL (80-100); Monocytes Absolute Auto 1300 /uL (0-900); Neutrophils Absolute Auto 13300 /uL (1500-7000); Neutrophils Percent Auto 81.8 % (50-75); Platelet Count 202 X10^3/uL (150-400); Red Blood Cell Count 3.85 X10^6/uL (4.5-5.9); Red Cell Distribution Width 14.5 % (11.6-14.8); White Blood Cell Count 16.3 X10^3/uL (4.5-11.0)
[2023-06-18 19:41] LABS: Alanine Aminotransferase 15 IU/L (<50); Albumin 4.3 g/dL (3.5-5.0); Albumin Globulin Ratio 1.3 (1.0-2.8); Alkaline Phosphatase 67 U/L (38-126); Aspartate Aminotransferase 16 IU/L (17-59); BUN Creatinine Ratio 12.6 (6-22); Bilirubin Total 0.8 mg/dL (0.2-1.3); Blood Urea Nitrogen 14 mg/dL (9-20); Calcium 9.3 mg/dL (8.4-10.2); Carbon Dioxide 24 mmol/L (22-32); Chloride 104 mmol/L (98-107); Estimated Glomerular Filt Rate > 60 mL/min (>60); Globulin 3.2 g/dL (1.7-4.1); Glucose 147 mg/dL (80-110); HEMOLYSIS < 15 (0-50); Lipase 63 U/L (23-300); Potassium 3.9 mmol/L (3.4-5.1); Sodium 137 mmol/L (137-145); Total Protein 7.5 g/dL (6.3-8.2)
--- NOTE | 2023-06-18 20:58 | DI.CT.S_ITS ---
PROCEDURE: CT ABDOMEN PELVIS W CON INDICATIONS: RLQ pain TECHNIQUE: After the administration of intravenous contrast, axial sections acquired from the lung bases to the pubic symphysis. Coronal and sagittal reformats were performed. For radiation dose reduction, the following was used: automated exposure control, adjustment of mA and/or kV according to patient size. COMPARISON: None. FINDINGS: Image quality: Diagnostic. Lower Chest: No significant findings. ABDOMEN: Liver: No solid mass. Simple cyst is seen in the left hepatic lobe. Gallbladder: No radiopaque gallstones or wall thickening. Biliary ducts: No biliary dilation. Pancreas: No ductal dilation. Spleen: Size is within normal limits. Adrenal Glands: No adrenal nodules. Kidneys and Ureters: No hydronephrosis. No solid mass. No complex renal cystic lesion which requires follow up. Stomach and Bowel: Appendix is dilated measuring up to 12 mm in diameter with wall thickening and periappendiceal fat stranding. No appendicoliths. Mild bowel wall thickening within a few adjacent bowel loops is likely reactive. No focal fluid collection is seen. A single punctate focus of free air is seen in the right lower quadrant (57/2). Small bowel loops and stomach are unremarkable. Peritoneum: No abnormal intraperitoneal fluid. No free air. Ventral Wall: No significant ventral hernia. Abdominal Nodes: No retroperitoneal or mesenteric adenopathy by size criteria. Vessels: Aorta and inferior vena cava are normal in size. PELVIS: Pelvic Organs: Unremarkable. Bladder: There is diffuse bladder wall thickening that is more prominent superiorly. Pelvic Nodes: No enlarged lymph nodes. Miscellaneous: No inguinal hernias are seen. Bones: No aggressive osseous abnormality. IMPRESSION: 1. Acute appendicitis. Single small focus of pneumoperitoneum is seen in the right lower quadrant that may indicate rupture. No well-defined fluid collection. 2. Diffuse bladder wall thickening is seen that is slightly more prominent superiorly. Findings may be reactive or secondary to cystitis and correlation with urinalysis is recommended. Findings were discussed with the referring provider, Dr. Fernandez, by telephone on 06/18/2023 at 9:38 PM. Approved by: Ronnie Ace M.D. on 06/18/2023 at 21:40
[2023-06-18 21:49] VITALS: BP 179/79; PULSE 80; O2SAT 99
[2023-06-18 21:57] LABS: Appearance Urine UA CLEAR; Bilirubin Urine UA 1+ (NEGATIVE); Color Urine UA YELLOW; Glucose Urine UA NEGATIVE (Negative); Ketones Urine UA 2+ (NEGATIVE); Leukocyte Esterase Urine UA NEGATIVE (NEGATIVE); Nitrite Urine UA NEGATIVE (Negative); Occult Blood Urine UA NEGATIVE (Negative); Protein Urine UA TRACE (Negative); Specific Gravity Urine UA 1.025 (1.000-1.035); Urobilinogen Urine UA 0.2 E.U./dL (0.2)
--- NOTE | 2023-06-18 21:59 | ED.GENADULT ---
HPI - General Adult General Chief complaint: Abdominal Pain Stated complaint: severe abd px lower rt side Time Seen by Provider: 06/18/23 21:23 Source: patient Mode of arrival: Ambulatory History of Present Illness HPI narrative: 73-year-old gentleman with a history of hypertension, BPH presents with complaints of increasing abdominal pain. He notes that his last meal was on the evening of the . On the he got up had a bowel movement had some moderate straining and felt tenderness throughout the entire abdomen. By this morning he noted the pain was localizing to his right lower quadrant and becoming more tender as he was walking. He does not describe fevers. He has been having waves of nausea but it has not persistent. No vomiting, chest pain, palpitations or dyspnea. Related Data Home Medications Medication Instructions Recorded Confirmed MULTIVITAMIN (Multiple Vitamins 1 tab PO Q DAY ##0 02/02/12 06/18/23 Daily) cholecalciferol (vit D3) 1,000 1 tab PO DAILY 02/03/22 06/18/23 unit-vitamin K2 (MK4) 100 mcg tablet enalapril maleate 5 mg tablet 5 mg PO DAILY 06/18/23 06/18/23 Previous Rx's Medication Instructions Recorded amlodipine 5 mg tablet 10 mg (2 x 5 mg) PO DAILY #180 tabs 02/02/22 tamsulosin 0.4 mg capsule 0.8 mg (2 x 0.4 mg) PO ONCE PM 04/06/23 #180 caps Allergies Allergy/AdvReac Type Severity Reaction Status Date / Time No Known Drug Allergies Allergy Verified 12/02/22 08:13 Review of Systems Review of Systems Narrative: Pertinent positive and negative findings as per HPI Patient History Medical History (Updated 06/18/23 @ 22:14 by Kayy Fernandez MD) Bladder mass History of kidney stones Hypotonic bladder Elevated serum creatinine History of hydronephrosis Urinary tract infection Retention of urine History of renal insufficiency Bilateral hydronephrosis History of tobacco use Secondhand smoke exposure Benign prostatic hyperplasia Lower urinary tract symptoms Incomplete emptying of bladder History of nephrolithotomy with removal of calculi Diabetes Medicare annual wellness visit, subsequent Left knee sprain Hiatal hernia GERD (gastroesophageal reflux disease) Hyperglycemia Hypertension Hyperlipidemia Surgical History (Updated 06/16/22 @ 09:31 by Vannesa Perry RN) Hx of cystoscopy (10/16/13) Family History Mother Diabetes mellitus Hypertension Eczema Father Diabetes mellitus Hypertension Sister Eczema Social History marital status: unmarried,single number of children: 0 household members: significant other Smoking Status: Former smoker alcohol intake: current Type(s) of exercise: walking frequency: daily Smoking Status: Former smoker tobacco type: cigarettes alcohol intake frequency: holidays/special occasions only Substance Use Type: does not use Exam Initial Vital Signs Initial Vital Signs: Vital Signs Temperature 99.1 F 06/18/23 19:02 Pulse Rate 56 L 06/18/23 19:02 Respiratory Rate 14 06/18/23 19:02 Blood Pressure 171/78 H 06/18/23 19:02 Pulse Oximetry 100 06/18/23 19:02 Oxygen Delivery Method Room Air 06/18/23 19:02 General: Healthy appearing, in no acute distress. Able to give a complete and coherent history. Well-nourished well-developed HEENT: Moist mucous membranes, normal sclera with reactive pupils, Neck: No JVD, supple Respiratory: Lungs are clear to auscultation, no wheezing no rales no rhonchi. Full and symmetrical air movement Cardiac: Regular rate and rhythm no murmurs no bruits Abdomen: Soft, tender significantly in the right lower quadrant, left lower quadrant and right upper quadrant palpation we will cause tenderness into the right lower quadrant. He does not have rebound or guarding at this time Skin: Warm and dry, no rashes Neurologic: Grossly neurologically intact with no obvious asymmetries or abnormalities Extremities: No trauma, well perfused Psych: Cooperative, appropriate insight and affect Course Orders Ordered: ED Orders 06/18/23 19:09 EKG-12 Lead Stat 06/18/23 19:20 Complete Blood Count AUTO DIFF Stat Comprehensive Metabolic Panel Stat Lipase Stat 06/18/23 20:30 Ictotest Urine Stat Urinalysis and Microscopic Stat 06/18/23 20:58 CT abdomen pelvis w con Stat Amlodipine Besylate (Amlodipine 5 Mg Tablet) 10 mg PO DAILY TREVOR Last Admin: 06/18/23 23:13 Dose: 10 mg Documented By: Hydromorphone HCl (Hydromorphone 0.5 Mg Inj) 0.5 mg IV Q2H PRN PRN Reason: Pain, Severe (7-10) Last Admin: 06/19/23 03:14 Dose: 0.5 mg Documented By: Sodium Chloride (Normal Saline 0.9%) 1,000 mls @ 150 mls/hr IV CONT [facility] Last Admin: 06/19/23 00:02 Dose: 150 mls/hr Documented By: Piperacillin Sod/Tazobactam (Sod 3.375 gm/ Sodium Chloride) 100 mls @ 25 mls/hr IV Q8H [facility] Last Admin: 06/19/23 02:59 Dose: 25 mls/hr Documented By: Lisinopril (Lisinopril 5 Mg Tablet) 5 mg PO DAILY [facility] Last Admin: 06/18/23 23:12 Dose: 5 mg Documented By: Ondansetron HCl (Ondansetron 4 Mg/2 Ml Inj) 4 mg IV NOW PRN PRN Reason: Nausea And Vomiting Ondansetron HCl (Ondansetron 4 Mg Odt) 4 mg PO NOW PRN PRN Reason: Nausea And Vomiting Ondansetron HCl (Ondansetron 4 Mg/2 Ml Inj) 4 mg IV Q4HR PRN PRN Reason: Nausea And Vomiting Discontinued Medications Piperacillin Sod/Tazobactam (Sod 4.5 gm/ Sodium Chloride) 100 mls @ 200 mls/hr IV NOW ONE Stop: 06/18/23 22:15 Last Infusion: 06/18/23 22:42 Dose: Infused Documented By: Admin: 06/18/23 22:25 Dose: 200 mls/hr Documented By: PHONG Piperacillin Sod/Tazobactam (Sod 3.375 gm/ Sodium Chloride) 100 mls @ 25 mls/hr IV Q8H [facility] [place] Last Admin: 06/18/23 23:35 Dose: Not Given Documented By: Vital Signs Vital signs: Vital Signs - 8 hr 06/18/23 21:49 06/18/23 21:49 06/18/23 22:00 Pulse Rate 80 61 Respiratory Rate 18 Blood Pressure 179/79 H Pulse Oximetry 99 97 06/18/23 22:00 Pulse Rate Respiratory Rate Blood Pressure 162/68 H Pulse Oximetry Medical Decision Making Lab Data 06/18/23 19:20 06/18/23 19:20 Labs: Lab Results 03/15/24 03/15/24 Range/Units 19:20 20:30 WBC 16.3 H (4.5-11.0) X10^3/uL RBC 3.85 L (4.5-5.9) X10^6/uL Hgb 11.8 L (13.5-17.5) g/dL Hct 35.4 L (41-53) % MCV 91.9 (80-100) fL MCH 30.5 (26-34) PG MCHC 33.2 (30-36) % RDW 14.5 (11.6-14.8) % Plt Count 202 (150-400) X10^3/uL Neut % (Auto) 81.8 H (50-75) % Lymph % (Auto) 9.8 L (25-40) % [place] % (Auto) 8.0 (3-14) % Eos % (Auto) 0.1 L (2-4) % Baso % (Auto) 0.3 (0-2) % Neut # (Auto) 29011 H (3720-4422) /uL Lymph # (Auto) 1600 (1303-6877) /uL [place] # (Auto) 1300 H (0-900) /uL Eos # (Auto) 0 (0-450) /uL Baso # (Auto) 0 (0-100) /uL Sodium 137 (137-145) mmol/L Potassium 3.9 (3.4-5.1) mmol/L Chloride 104 (98-107) mmol/L Carbon Dioxide 24 (22-32) mmol/L BUN 14 (9-20) mg/dL Creatinine 1.11 (0.66-1.25) mg/dL Estimated GFR > 60 (>60) mL/min BUN/Creatinine Ratio 12.6 (6-22) Glucose 147 H (80-110) mg/dL Calcium 9.3 (8.4-10.2) mg/dL Total Bilirubin 0.8 (0.2-1.3) mg/dL AST 16 L (17-59) IU/L ALT 15 (<50) IU/L Alkaline Phosphatase 67 (38-126) U/L Total Protein 7.5 (6.3-8.2) g/dL Albumin 4.3 (3.5-5.0) g/dL Globulin 3.2 (1.7-4.1) g/dL Albumin/Globulin Ratio 1.3 (1.0-2.8) Lipase 63 (23-300) U/L Urine Color Yellow Urine Appearance Clear Urine pH 5.0 (4.5-8.0) Ur Specific [place] 1.025 (1.000-1.035) Urine Protein Trace H (Negative) Urine Glucose (UA) Negative (Negative) g/dL Urine Ketones 2+ H (NEGATIVE) Urine Occult Blood Negative (Negative) Urine Nitrate Negative (Negative) Urine Bilirubin 1+ H (NEGATIVE) Ur Bilirubin Confirm Negative (Negative) Urine Urobilinogen 0.2 (0.2) E.U./dL Ur Leukocyte Esterase Negative (NEGATIVE) Urine RBC 0-1/hpf (0-5/HPF) Urine WBC 1-5/hpf (0-5/HPF) Ur Squamous Epith Cells 0-1 /hpf (0-5/HPF) Urine Bacteria Occasional (0-1) (None) Urine Mucus 1+ H (Negative) Ur Culture Indicated? Cult not indicated Vol Urine Centrifuged 10ml (spun) MDM Narrative Medical decision making narrative: CC: Abdominal pain Complicating co-morbidities: Hypertension, BPH, Data collected from: patient Medical records reviewed: Primary care notes from July 02 a year ago are reviewed Differential considered: Appendicitis, bowel obstruction, kidney stone Exam documented above, pertinent findings include: Significant tenderness without rebound or guarding in the right lower quadrant Lab Test results independently reviewed as above. Pertinent findings: [place] [address] with mild anemia, hemoglobin of 11.8 and hematocrit of 35.4. Chemistries are reassuring with normal renal function. Urine does not suggest urinary tract infection Imaging studies independently reviewed: CT scan of the abdomen is reviewed in real-time with the radiologist. It demonstrates a dilated appendix to 12 mm with wall thickening, periappendiceal fat stranding, no appendicolith, mild bowel wall thickening around the appendix, no focal fluid collection and a small punctate focus of free air in the right lower quadrant is appreciated. Consultations: Discussion with Dr. Herrera, general surgery. Will plan on admission and likely operative intervention tomorrow Treatments: IV fluids, usual oral antihypertensives are given, Zosyn is started, as needed parenteral narcotics and antiemetics as needed Discussion: 73-year-old gentleman with 48 hours of increasing abdominal pain, leukocytosis and CT scan suggesting acute appendicitis with concern for small perforation. He does not have an acute surgical abdomen at this time. Transition orders are written he is admitted to the surgical service with anticipation of surgical intervention in the morning. Findings reviewed with the patient, questions are answered and he is safe for transfer to the floor Discharge Plan Departure Patient Disposition: Admitted As Inpatient Clinical Impression: Acute appendicitis Qualifiers: Acute appendicitis type: with localized peritonitis Appendicitis gangrene presence: unspecified whether gangrene present Appendicitis perforation presence: with perforation Appendicitis abscess presence: without abscess Qualified Code(s): K35.32 - Acute appendicitis with perforation, localized peritonitis, and gangrene, without abscess Admit Date/Time: 06/18/23 22:07 Admit Provider: Joe Herrera
[2023-06-18 22:00] VITALS: BP 162/68; PULSE 61; RESP 18; O2SAT 97
[2023-06-18 22:05] LABS: Bacteria Urine Occasional (0-1); Culture Indicated Urine Cult Not Indicated; Ictotest Urine Negative (Negative); Mucus Urine 1+ (Negative); RBC Urine 0-1/HPF (0-5/HPF); Squamous Epithelial Cell Urine 0-1 /HPF (0-5/HPF); Urine Volume 10mL (spun); WBC Urine 1-5/HPF (0-5/HPF)
[2023-06-18] MEDS: PIPERACILLIN/TAZO 4.5 GM in SODIUM CHLORIDE 0.9% 100 ML IV (22:25)
[2023-06-18 22:45] VITALS: BP 153/65; PULSE 69; RESP 18; TEMP 36.9; O2SAT 98
[2023-06-18 22:50] VITALS: BMI 25.0
[2023-06-18 23:12] VITALS: BP 153/65; PULSE 67
[2023-06-18] MEDS: lisinopriL 5 MG TABLET PO (23:12)
[2023-06-18] MEDS: AMLODIPINE 5 MG TABLET 10 MG PO (23:13)
[2023-06-19] VITALS (18 sets, daily range): BP systolic 105–169; BP diastolic 58–86; PULSE 61–101; RESP 13–20; TEMP 36.4–37.7; O2SAT 93–100
--- NOTE | 2023-06-19 | PATH_ITS ---
[facility] Accession Number: [id number] No. of containers..01 Tissue . 01 Material submitted: . appendix - APPENDIX . 01 Diagnosis: APPENDIX, APPENDECTOMY: Acute and periappendicitis. MRV 06/23/2023 1417 Local . 01 Electronically signed: . Jeane Goetz MD, Pathologist NPI- [id number] . 01 Gross description: . Received in formalin with two patient identifiers and appendix, is a lind vermiform appendix measuring 6.5 cm in length by 1.0 cm in average diameter with mesoappendix extending out to 2.8 cm. The serosa is lind and roughened with adherent material consistent with exudate and a full thickness defect measuring 0.1 cm in diameter. The margin is inked blue, and sectioning reveals a patent lumen filled with brown fluid averaging 0.3 cm in diameter. The guerra average 0.3 cm thick, and are soler-lind with no lesions identified. Physical Medicine Teacher sections to include the margin, one-half of the bisected distal tip, and cross section with area of defect are submitted in cassette A1. ([id number]) /MRV 06/22/2023 1248 Local . 01 Pathologist provided ICD-10: K35.80 . 01 CPT . 220869 Specimen Comment: A courtesy copy of this report has been sent to [phone] Performed at: 01 [facility] [address] [place] [address], [place], [place] [id number] MD Adalid Spann MD Phone: [phone]
[2023-06-19] MEDS: SODIUM CHLORIDE 0.9% 1,000 ML 150 ML IV ×2 (00:02→06:44)
[2023-06-19] MEDS: PIPERACILLIN/TAZO 3.375 GM in SODIUM CHLORIDE 0.9% 100 ML IV ×3 (02:59→18:37)
[2023-06-19] MEDS: HYDROMORPHONE 0.5 MG INJ IV ×4 (03:14→11:05)
[2023-06-19 07:25] LABS: Troponin I < 0.012 ng/mL (0.01-0.034)
--- NOTE | 2023-06-19 07:36 | PC.NURSE ---
At 0603 patient c/o pain to epigastric region, aching, rated 6-7/10. Patient also HUNT. Denied nausea. BP 169/86, HR 101, POX 95% on RA. O2 2L NC applied. Dilaudid 0.5 mg IV given with partial relief. 0630 patient c/o pain rated 4-5/10, now described as tightness, c/o SOB. BP 158/82, HR 90, POX 96% on O2 2L NC. Dr Herrera notified of above and orders received. EKG done, NSR, Trop drawn, WDL. Pain 3/10, tightness to epigastric region and aching pain to RLQ. 0715 patient sleeping.
--- NOTE | 2023-06-19 10:45 | CM.DANOTE ---
Initial DCP Assessment Note Pt is a 73 yo male, resident of [place], presents w/severe abd pain, found to have acute appendicitis with perforation, scheduled for a lap appy this morning with Dr Herrera. PCP: Papi Bone Payer: MEGAN/Esther Reviewed chart, met w/patient, introduced self and role. Patient reports that he lives w/SO of 40+ years Vannesa. Patient is indp in all aspects and plans to return home with assist from SO as needed. No barriers identified at this time to patient's safe discharge home w/family to assist; close outpatient f/u recommended. CM team will plan to follow closely in case any DC needs or concerns arise. IRVIN Hines Discharge Planning/Care Management Discharge Assessment Start: 06/19/23 10:25 Freq: Status: Active Protocol: Document 06/19/23 10:26 TANMAY (Rec: 06/19/23 10:45 TANMAY [id number]) Discharge Planning Assessment Assigned Body Care Manager IRVIN Vargas DPOA/Assigned Designee Name Vannesa Hardin, S.Raiza. Contact Information [phone] Advance Directives? No History Provided By Patient,Medical Record Prior Living Arrangements House Household Members significant other Type of transporation used prior to Drives own vehicle admit Independent with ADL's Yes Is patient alert and oriented? Yes Barriers to Discharge No Comment Home w/SO Discharge Plan Home Whiteboard Updated in Patient Room with Yes name and ext. # of Body Care Manager
--- NOTE | 2023-06-19 11:02 | P.HP_ITS ---
History of Present Illness History of Present Illness Date Patient Seen: 06/19/23 Time Patient Seen: 11:04 Date of Onset of Symptoms: 06/19/23 Chief complaint: severe abd px lower rt side Narrative: Valeriano Lua is a 73-year-old man PMH well-controlled type 2 diabetes not on insulin, hypertension and BPH who is admitted to [facility] for acute appendicitis. He describes several days of generalized abdominal discomfort which became focal right lower quadrant pain yesterday leading to his emergency department visit. At admission temperature 99.8?, WBC 16 with left shift, negative urinalysis. CT abdomen pelvis demonstrates acute appendicitis without abscess. No prior abdominal surgery. Today he continues to have abdominal pain and had some upper abdominal/chest pain. EKG and troponin were negative. On physical examination he has focal peritonitis of the right lower quadrant otherwise exam is unremarkable. Aaron is a 73-year-old man in good health with acute perforated appendicitis. We reviewed his laboratory and imaging studies, and we discussed the management of acute appendicitis and specifically non operative antibiotic therapy versus appendectomy. The relative risks and benefits of each approach were reviewed. Following discussion his preference is to proceed with appendectomy because of his concern for recurrent disease. An overview of the operation was described. Operative risks including but not limited to infection, hemorrhage, damage to surrounding structures, conversion to open as well as rare with a serious events such as myocardial infarction, stroke and were reviewed. His questions have been answered and he is in agreement with this plan. I explained to him that his appendix is likely perforated and that he is at increased risk of developing a postoperative intra-abdominal abscess. We will plan to keep him overnight for further antibiotic therapy following surgery and he will likely be able to discharge home Monday 06/19. [facility] Medical History (Updated 06/18/23 @ 22:14 by Kayy Fernandez MD) Bladder mass History of kidney stones Hypotonic bladder Elevated serum creatinine History of hydronephrosis Urinary tract infection Retention of urine History of renal insufficiency Bilateral hydronephrosis History of tobacco use Secondhand smoke exposure Benign prostatic hyperplasia Lower urinary tract symptoms Incomplete emptying of bladder History of nephrolithotomy with removal of calculi Diabetes Medicare annual wellness visit, subsequent Left knee sprain Hiatal hernia GERD (gastroesophageal reflux disease) Hyperglycemia Hypertension Hyperlipidemia Surgical History (Updated 06/16/22 @ 09:31 by Vannesa Perry RN) Hx of cystoscopy (10/16/13) Family History Mother Diabetes mellitus Hypertension Eczema Father Diabetes mellitus Hypertension Sister Eczema Social History marital status: unmarried,single number of children: 0 household members: significant other Smoking Status: Former smoker alcohol intake: current Type(s) of exercise: walking frequency: daily Meds Home Medications and Allergies Home Medications Medication Instructions Recorded Confirmed Type MULTIVITAMIN (Multiple Vitamins 1 tab PO Q DAY ##0 02/02/12 06/18/23 History Daily) amlodipine 5 mg tablet 10 mg (2 x 5 mg) PO DAILY #180 tabs 02/02/22 06/18/23 Rx cholecalciferol (vit D3) 1,000 1 tab PO DAILY 02/03/22 06/18/23 History unit-vitamin K2 (MK4) 100 mcg tablet tamsulosin 0.4 mg capsule 0.8 mg (2 x 0.4 mg) PO ONCE PM 04/06/23 06/18/23 Rx #180 caps enalapril maleate 5 mg tablet 5 mg PO DAILY 06/18/23 06/18/23 History Allergies Allergy/AdvReac Type Severity Reaction Status Date / Time No Known Drug Allergies Allergy Verified 12/02/22 08:13 Exam Vital Signs (past 8 hours): - 06/19/23 05:31 06/19/23 06:03 06/19/23 06:10 Temperature 99.7 F H Pulse Rate 75 101 H Respiratory Rate 17 20 Blood Pressure 142/65 H 169/86 H Pulse Oximetry 95 95 96 Oxygen Delivery Method Oxygen Flow Rate 2 06/19/23 06:30 06/19/23 08:00 06/19/23 10:12 Temperature 99.8 F H Pulse Rate 90 86 Respiratory Rate 20 18 Blood Pressure 158/82 H 162/74 H Pulse Oximetry 96 97 Oxygen Delivery Method Nasal Cannula Oxygen Flow Rate 2 Oxygen Delivery Method Nasal Cannula Oxygen Flow Rate 2 Narrative Exam Narrative: GENERAL: A well nourished, well developed adult, resting comfortably, uncomfortable. HEENT: Normocephalic, atraumatic. No scleral icterus CHEST: Rising symmetrically. No audible wheezes CARDIOVASCULAR: Warm and well perfused. Regular rate ABDOMEN: Focal peritonitis right lower quadrant EXTREMITIES: Normal tone and without edema. NEUROLOGIC: Moving all extremities spontaneously. No gross motor deficits. Objective Labs 06/18/23 19:20 06/18/23 19:20 Labs: Laboratory Results - last 24 hr 06/18/23 06/18/23 06/19/23 19:20 20:30 06:56 WBC 16.3 H RBC 3.85 L Hgb 11.8 L Hct 35.4 L MCV 91.9 MCH 30.5 MCHC 33.2 RDW 14.5 Plt Count 202 Neut % (Auto) 81.8 H Lymph % (Auto) 9.8 L Faulkner % (Auto) 8.0 Eos % (Auto) 0.1 L Baso % (Auto) 0.3 Neut # (Auto) 58394 H Lymph # (Auto) 1600 Faulkner # (Auto) 1300 H Eos # (Auto) 0 Baso # (Auto) 0 Sodium 137 Potassium 3.9 Chloride 104 Carbon Dioxide 24 BUN 14 Creatinine 1.11 Estimated GFR > 60 BUN/Creatinine Ratio 12.6 Glucose 147 H Calcium 9.3 Total Bilirubin 0.8 AST 16 L ALT 15 Alkaline Phosphatase 67 Troponin I < 0.012 Total Protein 7.5 Albumin 4.3 Globulin 3.2 Albumin/Globulin Ratio 1.3 Lipase 63 Urine Color Yellow Urine Appearance Clear Urine pH 5.0 Ur Specific Bartlett 1.025 Urine Protein Trace H Urine Glucose (UA) Negative Urine Ketones 2+ H Urine Occult Blood Negative Urine Nitrate Negative Urine Bilirubin 1+ H Ur Bilirubin Confirm Negative Urine Urobilinogen 0.2 Ur Leukocyte Esterase Negative Urine RBC 0-1/hpf Urine WBC 1-5/hpf Ur Squamous Epith Cells 0-1 /hpf Urine Bacteria Occasional (0-1) Urine Mucus 1+ H Ur Culture Indicated? Cult not indicated Vol Urine Centrifuged 10ml (spun) Assessment & Plan Assessment and plan (1) Acute appendicitis: Qualifiers: Acute appendicitis type: with localized peritonitis Appendicitis abscess presence: without abscess Appendicitis gangrene presence: unspecified whether gangrene present Appendicitis perforation presence: with perforation Qualified Code(s): K35.32 - Acute appendicitis with perforation, localized peritonitis, and gangrene, without abscess Status: Acute Assessment & Plan narrative: Laparoscopic appendectomy
[2023-06-19] MEDS: LACTATED RINGERS 1,000 ML 42 ML IV (12:22)
--- NOTE | 2023-06-19 13:19 | SUR.OPER ---
Supine on padded OR bed, head on pillow, left arm padded and tucked, right arm on padded arm board at <90 degress abduction, legs uncrossed, safety belt at thigh, tape over blanket over lower legs .
[2023-06-19] MEDS: BUPIVACAINE 0.25% (PF) VIAL 30 ML INJ (13:49)
--- NOTE | 2023-06-19 14:35 | PM.OP.1 ---
Operative Date/Time/Diagnoses Date of procedure: 06/19/23 Time of procedure: 14:35 Pre-op diagnosis: Acute appendicitis Post-op diagnosis: same Procedure & Clinicians Procedure: Laparoscopic appendectomy Same procedure as scheduled: Yes Indications: 73-year-old man who presents with perforated appendicitis following discussion of medical non operative management versus appendectomy elects to proceed with surgery. Surgeon: Joe Herrera Click Yes if Unassisted: Yes Anesthesia Type: General Operative Notes Findings: Necrotic perforated appendix, viable base. Phlegmon within the pelvis and purulent material extending to the level of the diaphragm. Specimen(s): other (Appendix) Estimated Blood Loss (mL): 50 Procedure in detail: Patient was brought to the operating room placed supine on the table. Bilateral lower extremity compression devices were applied. General anesthesia was induced he was intubated with an endotracheal tube. He would received 3.375 g of Zosyn prior to skin incision. He was prepped and draped in sterile fashion and a time-out was performed. An infraumbilical incision was made fascia was grasped elevated sharply incised and the abdomen was entered atraumatically. A 12 mm balloon trocar was then placed into the abdomen and pneumoperitoneum was established. The scope was inserted into the abdomen and a general inspection was made. The appendix was visible in the right lower quadrant was necrotic and perforated. There was a phlegmon in the right pericolic gutter and there was purulent fluid extending to the level of the diaphragm. Additional 5 mm working ports were placed in the suprapubic and left lower quadrant. The cecum was mobilized medially and in order to fully expose the appendix. Portion of the appendix had adhered to the terminal ileum and the the was sharply dissected off. The mesentery to the appendix was divided using the LigaSure and the appendix was amputated flush with the cecum using the linear stapler. The base of the appendix was viable. The abdomen was copiously lavaged with 7 L of sterile fluid until it returned grossly clear. A 19 [place] Pipe drain was then placed through the left lower quadrant incision into the right pericolic gutter. The specimen was removed using the Endo-Catch and then the umbilical fascia was closed using a Vicryl suture. The skin incisions were closed with Monocryl followed by Dermabond. He tolerated procedure well was extubated and transferred to recovery in stable condition. Complications: none Post-operative Condition: stable Disposition: Acute Care
[2023-06-19] MEDS: ONDANSETRON 4 MG/2 ML INJ IV (14:55)
--- NOTE | 2023-06-19 17:16 | PC.NURSE ---
Day shift: Pt returned from OR after appy at 1515. VS WNL. Patient denies pain and nausea. CAROL drain working well - 40mL sanguineous output. Pt OOB with SBA to BR - patient continues to self-cath to void every 3-5 hours. Will continue to monitor.
[2023-06-19] MEDS: IBUPROFEN 600 MG TABLET PO (17:23)
[2023-06-19] MEDS: ACETAMINOPHEN 325 MG TABLET 650 MG PO (17:23)
[2023-06-19] MEDS: TAMSULOSIN 0.4 MG CAPSULE 0.8 MG PO (20:53)
[2023-06-20] VITALS (11 sets, daily range): BP systolic 100–126; BP diastolic 55–66; PULSE 63–79; RESP 16–19; TEMP 36.1–36.9; O2SAT 95–97
--- NOTE | 2023-06-20 00:18 | PC.NURSE ---
Addendum entered by Daisy Navarrete R.N. 06/20/23 06:59: Pt denied actual pain stated only tenderness with movement throughout shift, refused offer of meciation lie tylenol and Ibuprofen. Drsg remained CDI and CAROL output total of 100ml. Original Note: Patient is A&OX4 calm cooperative and relaxed, Room air with Lungs sounds dim at bases but increased after ambulation and deep breathing. Pt rates abdominal discomfort 3/10 with movement. States that pain is much better than last night. Pt Ambulates to with SBA and self caths with 100-150ml UOP every 3 hours. Pt encouraged to splint abdomen to decrease discomfort while moving and deep breathing. Abdominal dressing CDI with CAROL drain with sero-sanguineous output. IV Saline locked with intermittent antibiotics.
[2023-06-20] MEDS: PIPERACILLIN/TAZO 3.375 GM in SODIUM CHLORIDE 0.9% 100 ML IV ×2 (03:18→10:48)
[2023-06-20 05:23] LABS: Add Manual Diff / Slide Review NO; Basophils Absolute Auto 0 /uL (0-100); Basophils Percent Auto 0.1 % (0-2); Eosinophils Absolute Auto 0 /uL (0-450); Hematocrit 32.8 % (41-53); Lymphocytes Absolute Auto 600 /uL (1100-4500); Lymphocytes Percent Auto 4.8 % (25-40); Mean Corpuscular HGB Conc 33.7 % (30-36); Mean Corpuscular Volume 91.9 fL (80-100); Monocytes Absolute Auto 900 /uL (0-900); Monocytes Percent Auto 7.5 % (3-14); Neutrophils Absolute Auto 11000 /uL (1500-7000); Neutrophils Percent Auto 87.6 % (50-75); Platelet Count 160 X10^3/uL (150-400); Red Blood Cell Count 3.57 X10^6/uL (4.5-5.9); Red Cell Distribution Width 14.4 % (11.6-14.8); White Blood Cell Count 12.5 X10^3/uL (4.5-11.0)
[2023-06-20 05:30] LABS: BUN Creatinine Ratio 16.2 (6-22); Blood Urea Nitrogen 21 mg/dL (9-20); Calcium 8.5 mg/dL (8.4-10.2); Carbon Dioxide 26 mmol/L (22-32); Chloride 105 mmol/L (98-107); Estimated Glomerular Filt Rate 58 mL/min (>60); Glucose 142 mg/dL (80-110); HEMOLYSIS < 15 (0-50); Potassium 4.2 mmol/L (3.4-5.1); Sodium 135 mmol/L (137-145)
[2023-06-20] MEDS: IBUPROFEN 600 MG TABLET PO (08:25)
[2023-06-20] MEDS: ACETAMINOPHEN 325 MG TABLET 650 MG PO (08:25)
[2023-06-20] MEDS: AMLODIPINE 5 MG TABLET 10 MG PO (08:25)
[2023-06-20] MEDS: lisinopriL 5 MG TABLET PO (08:25)
[2023-06-20] MEDS: ENALAPRIL 5 MG TABLET PO (08:26)
--- NOTE | 2023-06-20 11:56 | P.PN_ITS ---
Subjective Subjective Date Patient Seen: 06/20/23 Time Patient Seen: 11:56 Interval history: Postoperative day 1 status post laparoscopic appendectomy for for necrotic perforated appendicitis with peritonitis. -improve pain not yet resolved -afebrile -tolerate a diet Exam Vital Signs (past 8 hours): - 06/20/23 04:29 06/20/23 05:00 06/20/23 08:00 Temperature 97.0 F L 97.6 F Pulse Rate 63 65 Respiratory Rate 19 16 Blood Pressure 100/66 110/65 Pulse Oximetry 97 97 96 Oxygen Delivery Method Room Air Oxygen Flow Rate 0 0 06/20/23 08:25 06/20/23 08:26 06/20/23 09:00 Temperature Pulse Rate 65 65 Respiratory Rate Blood Pressure 110/65 110/65 Pulse Oximetry 96 Oxygen Delivery Method Room Air Oxygen Flow Rate Oxygen Delivery Method Room Air Oxygen Flow Rate 0 Narrative Exam Narrative: General adult man alert oriented no acute distress Abdomen tender right lower quadrant. Objective Labs 06/20/23 04:55 06/20/23 04:55 Labs: Laboratory Results - last 24 hr 06/20/23 04:55 WBC 12.5 H RBC 3.57 L Hgb 11.0 L Hct 32.8 L MCV 91.9 MCH 31.0 MCHC 33.7 RDW 14.4 Plt Count 160 Neut % (Auto) 87.6 H Lymph % (Auto) 4.8 L Porter % (Auto) 7.5 Eos % (Auto) 0.0 L Baso % (Auto) 0.1 Neut # (Auto) 86549 H Lymph # (Auto) 600 L Porter # (Auto) 900 Eos # (Auto) 0 Baso # (Auto) 0 Sodium 135 L Potassium 4.2 Chloride 105 Carbon Dioxide 26 BUN 21 H Creatinine 1.30 H Estimated GFR 58 L BUN/Creatinine Ratio 16.2 Glucose 142 H Calcium 8.5 PFSH Medical History (Updated 06/18/23 @ 22:14 by Kayy Fernandez MD) Bladder mass History of kidney stones Hypotonic bladder Elevated serum creatinine History of hydronephrosis Urinary tract infection Retention of urine History of renal insufficiency Bilateral hydronephrosis History of tobacco use Secondhand smoke exposure Benign prostatic hyperplasia Lower urinary tract symptoms Incomplete emptying of bladder History of nephrolithotomy with removal of calculi Diabetes Medicare annual wellness visit, subsequent Left knee sprain Hiatal hernia GERD (gastroesophageal reflux disease) Hyperglycemia Hypertension Hyperlipidemia Surgical History (Updated 06/16/22 @ 09:31 by Vannesa Perry RN) Hx of cystoscopy (10/16/13) Family History Mother Diabetes mellitus Hypertension Eczema Father Diabetes mellitus Hypertension Sister Eczema Social History marital status: unmarried,single number of children: 0 household members: significant other Smoking Status: Former smoker alcohol intake: current Type(s) of exercise: walking frequency: daily Assessment & Plan Post-op Postoperative Procedures: Procedures Operation Date: 06/19/23 11:00 Actual Procedure Side Surgeon p Laparoscopic Appendectomy Joe Herrera MD Postoperative status narrative: Postoperative day 1 status post laparoscopic appendectomy for acute necrotic perforated appendicitis with peritonitis. -transition IV to p.o. antibiotic -continue abdominal drain -SCDs ambulate
--- NOTE | 2023-06-20 12:09 | CM.DPC ---
DCP Cont: SW spoke to Surgeon and pt continues to have significant amount of output with his drain and surgery was complex and pt not yet stable for discharge today but anticipate likely tomorrow and no anticipated discharge planning needs when stable. Per RN, pt has been SBA to independent in room and self caths at baseline and has been about 3/10 pain and not accepting pain medication as pt feels its not needed. Plan: SW to follow closely for likely pt discharge home with Sig Other tomorrow if medically stable and any further identified needs. IRVIN Huang
--- NOTE | 2023-06-20 14:18 | PC.NURSE ---
Took report from DARYL Rico. Pt A&Ox4, VSS, no c/o pain.
[2023-06-20] MEDS: AMOXICILLIN/CLAV 875/125 MG 1 TAB PO (20:49)
[2023-06-20] MEDS: TAMSULOSIN 0.4 MG CAPSULE 0.8 MG PO (20:49)
[2023-06-21] VITALS: BP 118/62; PULSE 66; RESP 18; TEMP 37.3; O2SAT 95
[2023-06-21 04:00] VITALS: BP 120/64; PULSE 75; RESP 19; TEMP 37.1; O2SAT 95
[2023-06-21 05:39] LABS: Add Manual Diff / Slide Review NO; Basophils Absolute Auto 0 /uL (0-100); Basophils Percent Auto 0.1 % (0-2); Eosinophils Absolute Auto 0 /uL (0-450); Eosinophils Percent Auto 0.4 % (2-4); Hemoglobin 10.2 g/dL (13.5-17.5); Lymphocytes Absolute Auto 1100 /uL (1100-4500); Lymphocytes Percent Auto 9.3 % (25-40); Mean Corpuscular Hemoglobin 31.1 PG (26-34); Mean Corpuscular Volume 91.7 fL (80-100); Monocytes Absolute Auto 700 /uL (0-900); Monocytes Percent Auto 6.6 % (3-14); Neutrophils Absolute Auto 9500 /uL (1500-7000); Neutrophils Percent Auto 83.6 % (50-75); Platelet Count 155 X10^3/uL (150-400); Red Blood Cell Count 3.28 X10^6/uL (4.5-5.9); Red Cell Distribution Width 14.2 % (11.6-14.8); White Blood Cell Count 11.4 X10^3/uL (4.5-11.0)
[2023-06-21 05:42] LABS: BUN Creatinine Ratio 21.9 (6-22); Blood Urea Nitrogen 30 mg/dL (9-20); Calcium 8.4 mg/dL (8.4-10.2); Carbon Dioxide 23 mmol/L (22-32); Chloride 107 mmol/L (98-107); Estimated Glomerular Filt Rate 54 mL/min (>60); Glucose 117 mg/dL (80-110); HEMOLYSIS < 15 (0-50); Potassium 3.4 mmol/L (3.4-5.1); Sodium 137 mmol/L (137-145)
[2023-06-21 08:00] VITALS: BP 123/62; PULSE 74; RESP 16; TEMP 36.8; O2SAT 93
[2023-06-21] MEDS: POTASSIUM CHLORIDE 20 MEQ TAB 40 MEQ PO (08:16)
[2023-06-21] MEDS: AMLODIPINE 5 MG TABLET 10 MG PO (08:45)
[2023-06-21 08:46] VITALS: BP 123/62; PULSE 74
[2023-06-21] MEDS: ENALAPRIL 5 MG TABLET PO (08:46)
[2023-06-21] MEDS: AMOXICILLIN/CLAV 875/125 MG 1 TAB PO (08:46)
[2023-06-21] MEDS: lisinopriL 5 MG TABLET PO (08:46)
[2023-06-21] MEDS: ENOXAPARIN 40 MG/0.4 ML SYRINGE SUBCUT (08:46)
[2023-06-21 09:00] VITALS: O2SAT 93
--- NOTE | 2023-06-21 09:29 | PT.IIE ---
Current Diagnoses Acute appendicitis with perforation, localized peritonitis, and gangrene, without abscess (06/18/23) Surgery Performed Operation Date: 06/19/23 11:00 Actual Procedures p Laparoscopic Appendectomy - Joe Herrera MD Surgical History (Last Updated 06/16/22 @ 09:31 by Vannesa Perry RN) Hx of cystoscopy (10/16/13) Medical History (Last Updated 04/20/23 @ 12:40 by Edgardo Atkinosn MD) Benign prostatic hyperplasia Bilateral hydronephrosis Bladder mass Diabetes Elevated serum creatinine GERD (gastroesophageal reflux disease) Hiatal hernia History of hydronephrosis History of kidney stones History of nephrolithotomy with removal of calculi History of renal insufficiency History of tobacco use Hyperglycemia Hyperlipidemia Hypertension Hypotonic bladder Incomplete emptying of bladder Left knee sprain Lower urinary tract symptoms Medicare annual wellness visit, subsequent Retention of urine Secondhand smoke exposure Urinary tract infection Physical Therapy Inpatient Evaluation/Re-Eval M1 PT/OT-IP Prior Functional Status Start: 06/21/23 08:57 Freq: NEEDED Status: Active Protocol: Document 06/21/23 09:05 MB (Rec: 06/21/23 09:28 [id number]) Medical Review Prior Functional Status Medical History Reviewed Yes Diet/Fluid Consistency Regular Communication WNLs Mobility and Gait I Activities of Daily Living and IADL's I Prior Functional Level (Other details) Pt lives with Vannesa BOYD, and it is unclear how much help he will have from her at home but her family should be around to assist some if needed, he states Social History Household Members significant other Living Arrangements House Number of Floors (Floors) One Floor Number of Stairs To Enter/Railing? 2-4 steps with rail to enter Home Environment Standard Height Toilet,Tub/ Shower Home Equipment Hand Held Shower Employment Status Retired M2 PT-IP Current Condition Start: 06/21/23 08:57 Freq: NEEDED Status: Active Protocol: Document 06/21/23 09:05 MB (Rec: 06/21/23 09:28 MB [id number]) Physical Therapy Current Condition Current Condition Evaluation Date 06/21/23 Treatment Diagnosis Abdominal pain and s/p appendectomy and drains M3 PT-IP Subjective Start: 06/21/23 08:57 Freq: NEEDED Status: Active Protocol: Document 06/21/23 09:05 MB (Rec: 06/21/23 09:28 MB [id number]) Subjective Physical Therapy Visit Type Type Initial Evaluation Visit Start Time 09:05 Visit Stop Time 09:20 Number of SERVICE INSPECTOR Visits 0 Physical Therapy Visit Comments Patient Comments Pt states he is feeling better . Therapy Pain Assessment Pain When Pain Assessed At Rest Pain Present Pain Present Pain Reported Location Right Lower Abdomen Intensity 3 Scale Used Numeric (0 - 10) M4 PT-IP Mobility and Gait Start: 06/21/23 08:57 Freq: NEEDED Status: Active Protocol: Document 06/21/23 09:05 MB (Rec: 06/21/23 09:28 MB [id number]) PT-Bed Mobility Assessment Rolling Type of Rolling Log Rolling,Roll to Left Level of Assist Independent Supine to Sit Supine to Sit Independent Scooting Scooting to Edge of Bed Independent PT-Transfer Assessment Sit to and From Stand Sit to and from Stand Independent Equipment Transfer Assistive Device Gait Belt Orthotic/Prosthetic Devices or Brace: No Transfers Transfer Destination Bed Transfer Technique Ambulation Transfer Ability Level of Assist Independent Comments Mobility Comments Pt moves well and states he has been out walking and that he has not had any dizziness when up. He is feeling much better than pre-op Gait Assessment Gait Gait Assistance Required: Independent Distance (Feet) 100 Able to Maintain Weight Bearing Status Yes During Gait Assistive Devices Assistive Device Gait Belt Orthotic/Prosthetic Devices or Brace: No Gait Deviations General Gait Pattern Within Normal Limits Comments Gait Comments 100'x2 Stair Climbing Assessment Evaluation Level of Assist On Stairs Independent Devices Stair Climbing Assistive Devices Right Railing Technique/Endurance Stair Climbing Direction Ascend and Descend Stair Climbing Technique Step Over Step Number of Steps Climbed 3 Query Text: Stair Climbing Set # Repetitions (reps) 1 PT-Balance Assessment Sitting Balance and Reactions Static Sitting Balance Ability Normal Dynamic Sitting Balance Ability Normal Standing Balance and Reactions Static Standing Balance Ability Normal Dynamic Standing Balance Ability Normal M5 PT-IP Objective Assessments Start: 06/21/23 08:57 Freq: NEEDED Status: Active Protocol: Document 06/21/23 09:05 MB (Rec: 06/21/23 09:28 MB [id number]) Orientation Orientation/Cognition Level of Alertness Alert Orientation Name,Age,Birthday,Month,Date, Year,Day of Week,Place, Situation Language Function Ability No Deficits Noted Safety Awareness Understands Safety Issues Memory Description No Deficits Noted Gross Range of Motion Upper Extremity ROM Assessment Within Functional Limits Lower Extremity ROM Assessment Within Functional Limits Strength Upper Extremity Strength Assessment Within Functional Limits Lower Extremity Strength Assessment Within Functional Limits M6 PT-IP Treatment Start: 06/21/23 08:57 Freq: NEEDED Status: Active Protocol: Document 06/21/23 09:05 MB (Rec: 06/21/23 09:28 MB [id number]) Physical Therapy Treatment Education Education Provided Precautions Other Treatments Other Treatment Performed Ed pt in log rolling to protect abdomen M7 PT-IP Assessment and Plan Start: 06/21/23 08:57 Freq: NEEDED Status: Active Protocol: Document 06/21/23 09:05 MB (Rec: 06/21/23 09:28 MB [id number]) PT Summary Assessment and Plan Potential Rehabilitation Potential Excellent Status of Condition at Evaluation Stable Summary Progress Towards Goals Safe For Discharge,Goals Met Assessment Summary Pt is a pleasant gentleman who is feeling much better after surgery and who is mobilizing I. He con't to have drains and if he d/c with them, he may benefit from nsg consult. Otherwise, no acute or post- acute PT needs. Recommend up walking with nsg clearance. Frequency of Treatment Frequency Of Treatment Discharge Precautions Abdominal Surgery Precautions Log Roll,Lifting Restrictions, Gait Belt above Incisional Area Weight Bearing Status Weight Bearing Status Weight Bear as Tolerated Recommendations To Nursing Amount of Assist Needed Independent Discharge Recommendations PT Discharge Recommendations Home with Assistance Transportation Needs at Discharge Private Vehicle
--- NOTE | 2023-06-21 09:39 | P.DS_ITS ---
History of Present Illness History of Present Illness Date Patient Seen: 06/21/23 Chief complaint: severe abd px lower rt side Narrative: Valeriano Lua is a 73-year-old man PMH well-controlled type 2 diabetes not on insulin, hypertension and BPH who is admitted to [facility] for acute appendicitis. He describes several days of generalized abdominal discomfort which became focal right lower quadrant pain yesterday leading to his emergency department visit. At admission temperature 99.8?, WBC 16 with left shift, negative urinalysis. CT abdomen pelvis demonstrates acute appendicitis without abscess. No prior abdominal surgery. Today he continues to have abdominal pain and had some upper abdominal/chest pain. EKG and troponin were negative. On physical examination he has focal peritonitis of the right lower quadrant otherwise exam is unremarkable. Aaron is a 73-year-old man in good health with acute perforated appendicitis. We reviewed his laboratory and imaging studies, and we discussed the management of acute appendicitis and specifically non operative antibiotic therapy versus appendectomy. The relative risks and benefits of each approach were reviewed. Following discussion his preference is to proceed with appendectomy because of his concern for recurrent disease. An overview of the operation was described. Operative risks including but not limited to infection, hemorrhage, damage to surrounding structures, conversion to open as well as rare with a serious events such as myocardial infarction, stroke and were reviewed. His questions have been answered and he is in agreement with this plan. I explained to him that his appendix is likely perforated and that he is at increased risk of developing a postoperative intra-abdominal abscess. We will plan to keep him overnight for further antibiotic therapy following surgery and he will likely be able to discharge home Monday 06/19. Discharge Providers Provider Date of admission: 06/18/23 22:07 Discharge Date: 06/21/23 Primary care physician: Papi Bone MD Consults: 06/20/23 11:58 Consult to Physical Therapy Evaluate & Treat Comment: Physician Instructions: Evaluate and Treat Discharge provider: Joe Herrera MD Summary Hospital Course Discharge Diagnosis: Peritonitis Acute appendicitis Hospital Course: Patient was taken to the operating room June 18 underwent a laparoscopic appendectomy which demonstrated acute perforated appendicitis with peritonitis. He remained hospitalized for 2 days for antibiotic therapy. At discharge he is afebrile, tolerant of a diet, pain has resolved, ambulatory, minimal drain output and the drain was removed prior to discharge. He will be sent home on a 5 day course of Augmentin. Follow up in surgical clinic in 2 weeks' time. Return precautions provided. Exam Vital Signs (past 8 hours): - 06/21/23 04:00 06/21/23 08:00 06/21/23 08:46 Temperature 98.7 F 98.3 F Pulse Rate 75 74 74 Respiratory Rate 19 16 Blood Pressure 120/64 123/62 123/62 Pulse Oximetry 95 93 Oxygen Delivery Method Oxygen Flow Rate 0 06/21/23 08:46 06/21/23 09:00 Temperature Pulse Rate 74 Respiratory Rate Blood Pressure 123/62 Pulse Oximetry 93 Oxygen Delivery Method Room Air Oxygen Flow Rate Oxygen Delivery Method Room Air Oxygen Flow Rate 0 Narrative Exam Narrative: General adult man alert oriented no acute distress Abdomen soft appropriately tender to palpation. Laparoscopic port incisions clean dry intact. Objective Labs 06/21/23 04:25 06/21/23 04:25 Labs: Laboratory Results - last 24 hr 06/21/23 04:25 WBC 11.4 H RBC 3.28 L Hgb 10.2 L Hct 30.0 L MCV 91.7 MCH 31.1 MCHC 34.0 RDW 14.2 Plt Count 155 Neut % (Auto) 83.6 H Lymph % (Auto) 9.3 L [place] % (Auto) 6.6 Eos % (Auto) 0.4 L Baso % (Auto) 0.1 Neut # (Auto) 9500 H Lymph # (Auto) 1100 [place] # (Auto) 700 Eos # (Auto) 0 Baso # (Auto) 0 Sodium 137 Potassium 3.4 Chloride 107 Carbon Dioxide 23 BUN 30 H Creatinine 1.37 H Estimated GFR 54 L BUN/Creatinine Ratio 21.9 Glucose 117 H Calcium 8.4 PFSH Medical History (Updated 06/18/23 @ 22:14 by Kayy Fernandez MD) Bladder mass History of kidney stones Hypotonic bladder Elevated serum creatinine History of hydronephrosis Urinary tract infection Retention of urine History of renal insufficiency Bilateral hydronephrosis History of tobacco use Secondhand smoke exposure Benign prostatic hyperplasia Lower urinary tract symptoms Incomplete emptying of bladder History of nephrolithotomy with removal of calculi Diabetes Medicare annual wellness visit, subsequent Left knee sprain Hiatal hernia GERD (gastroesophageal reflux disease) Hyperglycemia Hypertension Hyperlipidemia Surgical History (Updated 06/16/22 @ 09:31 by Vannesa Perry RN) Hx of cystoscopy (10/16/13) Family History Mother Diabetes mellitus Hypertension Eczema Father Diabetes mellitus Hypertension Sister Eczema Social History marital status: unmarried,single number of children: 0 household members: significant other Smoking Status: Former smoker alcohol intake: current Type(s) of exercise: walking frequency: daily Discharge Plan Discharge Plan Patient Disposition: Home Provider Discharge Comment: -Okay to shower but do not submerge wounds in water until seen in follow-up. -Bandaid over drain site -No lifting >10 lbs x 4 weeks. -Walking only for exercise for 4 weeks. Discharge orders & Medications Prescriptions: New amoxicillin-pot clavulanate [Augmentin] 500-125 mg tablet 1 tab PO BID Qty: 10 0RF acetaminophen [Tylenol] 325 mg capsule 650 mg PO QID PRN (Reason: pain) Qty: 60 0RF Continued MULTIVITAMIN (Multiple Vitamins Daily) 1 tab PO Q DAY Qty: 0 amlodipine 5 mg tablet 10 mg PO DAILY Qty: 180 3RF tamsulosin 0.4 mg capsule 0.8 mg PO ONCE PM Qty: 180 0RF vitamin D3-vitamin K2 (MK4) 1,000-100 unit-mcg tablet 1 tab PO DAILY enalapril maleate 5 mg tablet 5 mg PO DAILY Follow up/Referrals: Joe Herrera MD [Physician] - 2 Weeks Diet/Activity/Treatments Diet: Diet as Tolerated Visit Report/Discharge Packet Stand Alone Forms: Patient Portal/API, Stroke Signs & Symptoms Discharge Data Primary Care Provider: Papi Bone
--- NOTE | 2023-06-21 10:32 | CM.DPC ---
DCP Discharge Home Per Surgeon, pt improved and medically stable to d/c home today and no identified barriers to discharge and Surgeon confirmed with SW that no discharge needs at this time. Per PT, pt participated well and recommending safe d/c home with Sig Other assist. Per RN, pt waiting for his Sig Other for transport home today around lunch time, no concerns noted. Plan: Patient to discharge home via Sig Other POV and outpt f/u and no further SW needs at this time. IRVIN Huang
--- NOTE | 2023-06-21 11:12 | PC.NURSE ---
Day shift: Discharge instructions gone over with patient. Patient stated understanding, all questions answered. PIV removed. MD Herrera at bedside and removed CAROL drain and covered site with bandaid. All belongings with patient. Nothing in safe or stored in pharmacy. PCT Isaías escorted patient via wheelchair to main entrance where family member to nut picker.
== END 2023-06-21 10:45 | disposition home or self-care (01) | DRG 399 ==
LOC: ED 21:59 → AC 22:08
PROVIDERS: Admitting Provider Surgery; Emergency Provider Emergency Medicine; PCP Family Medicine; Referring Provider Emergency Medicine; Visit Provider Surgery
PROC: 0DTJ4ZZ Resection of Appendix, Percutaneous Endoscopic Approach (ICD-10-PCS; CPT 44970; principal; 2023-06-19 11:00)
DX: K35.32 Acute appendicitis with perforation, localized peritonitis, and gangrene, without abscess (principal); I10 Essential (primary) hypertension; N40.0 Benign prostatic hyperplasia without lower urinary tract symptoms; Z87.891 Personal history of nicotine dependence
CPT/HCPCS: 36415; 44970; 74177; 80048; 80053; 81001; 83690; 84484; 85025; 93005; 93010; 96365; 97161; 99222; 99283; 99285; J1100; J1170; J1650; J2405; J2543; J2704; J3010; J3490; Q9967

== ENCOUNTER → 2023-07-23 13:46 | Outpatient (CLI) | payer MEDICARE, OTHER, SELFPAY ==
[2023-07-23 14:22] LABS: Add Manual Diff / Slide Review NO; Basophils Absolute Auto 100 /uL (0-100); Eosinophils Absolute Auto 300 /uL (0-450); Eosinophils Percent Auto 4.3 % (2-4); Hematocrit 35.2 % (41-53); Hemoglobin 11.7 g/dL (13.5-17.5); Lymphocytes Absolute Auto 2900 /uL (1100-4500); Lymphocytes Percent Auto 37.8 % (25-40); Mean Corpuscular HGB Conc 33.4 % (30-36); Mean Corpuscular Hemoglobin 29.6 PG (26-34); Mean Corpuscular Volume 88.7 fL (80-100); Monocytes Absolute Auto 800 /uL (0-900); Monocytes Percent Auto 9.8 % (3-14); Neutrophils Absolute Auto 3600 /uL (1500-7000); Neutrophils Percent Auto 47.1 % (50-75); Platelet Count 193 X10^3/uL (150-400); Red Blood Cell Count 3.97 X10^6/uL (4.5-5.9); White Blood Cell Count 7.6 X10^3/uL (4.5-11.0)
[2023-07-23 14:30] LABS: Hemoglobin A1C% w Est Avg Glu 6.4 % (4.0-6.0)
[2023-07-23 14:34] LABS: Alanine Aminotransferase 17 IU/L (<50); Albumin 4.3 g/dL (3.5-5.0); Albumin Globulin Ratio 1.6 (1.0-2.8); Alkaline Phosphatase 102 U/L (38-126); Aspartate Aminotransferase 19 IU/L (17-59); BUN Creatinine Ratio 21.4 (6-22); Bilirubin Total 0.5 mg/dL (0.2-1.3); Blood Urea Nitrogen 30 mg/dL (9-20); Calcium 9.3 mg/dL (8.4-10.2); Carbon Dioxide 20 mmol/L (22-32); Chloride 107 mmol/L (98-107); Cholesterol 127 mg/dL (140-199); Estimated Glomerular Filt Rate 53 mL/min (>60); Globulin 2.7 g/dL (1.7-4.1); Glucose 107 mg/dL (80-110); HDL Cholesterol 53 mg/dL (40-60); HEMOLYSIS < 15 (0-50); LDL Cholesterol Calculated 64 mg/dL (<100); Potassium 4.1 mmol/L (3.4-5.1); Sodium 139 mmol/L (137-145); Triglycerides 52 mg/dL (35-150)
[2023-07-23 15:12] LABS: TSH w/ Reflex to FT4 1.32 uIU/mL (0.47-4.68)
[2023-07-23 15:30] LABS: Creatinine Urine Random 126.2 mg/dL
[2023-07-23 15:42] LABS: Microalbumin Urine Random < 0.6 mg/dL (0-1.6)
[2023-07-25 09:10] LABS: Apolipoprotein B 70 mg/dL (<90)
[2023-07-26 16:37] LABS: Hep C Virus Ab w/Reflex Quant NEGATIVE s/c (NEGATIVE)
== END ==
PROVIDERS: PCP Family Medicine; Referring Provider Family Medicine; Visit Provider Family Medicine
DX: E11.9 Type 2 diabetes mellitus without complications (principal); I10 Essential (primary) hypertension; E78.2 Mixed hyperlipidemia; N13.30 Unspecified hydronephrosis; N40.0 Benign prostatic hyperplasia without lower urinary tract symptoms; Z00.00 Encounter for general adult medical examination without abnormal findings
CPT/HCPCS: 36415; 80053; 80061; 82043; 82172; 82570; 83036; 84443; 85025; 86803

== ENCOUNTER → 2023-09-02 11:23 | Outpatient (CLI) | payer MEDICARE, OTHER, SELFPAY ==
[2023-09-02 13:04] LABS: BUN Creatinine Ratio 29.3 (6-22); Blood Urea Nitrogen 34 mg/dL (9-20); Carbon Dioxide 24 mmol/L (22-32); Chloride 106 mmol/L (98-107); Estimated Glomerular Filt Rate > 60 mL/min (>60); Glucose 119 mg/dL (80-110); HEMOLYSIS < 15 (0-50); Sodium 139 mmol/L (137-145)
== END ==
PROVIDERS: PCP Family Medicine; Referring Provider Urology; Visit Provider Urology
DX: R79.89 Other specified abnormal findings of blood chemistry (principal)
CPT/HCPCS: 36415; 80048

== ENCOUNTER → 2023-09-23 13:07 | Outpatient (CLI) | payer MEDICARE, OTHER, SELFPAY ==
[2023-09-23 14:06] LABS: BUN Creatinine Ratio 27.2 (6-22); Blood Urea Nitrogen 43 mg/dL (9-20); Calcium 9.3 mg/dL (8.4-10.2); Carbon Dioxide 23 mmol/L (22-32); Chloride 103 mmol/L (98-107); Estimated Glomerular Filt Rate 46 mL/min (>60); Glucose 116 mg/dL (80-110); HEMOLYSIS < 15 (0-50); Potassium 4.7 mmol/L (3.4-5.1); Sodium 134 mmol/L (137-145)
== END ==
PROVIDERS: PCP Family Medicine; Referring Provider Urology; Visit Provider Urology
DX: R79.89 Other specified abnormal findings of blood chemistry (principal)
CPT/HCPCS: 36415; 80048

== ENCOUNTER → 2023-09-30 13:09 | Outpatient (CLI) | payer MEDICARE, OTHER, SELFPAY ==
[2023-09-30 14:59] LABS: BUN Creatinine Ratio 34.1 (6-22); Blood Urea Nitrogen 44 mg/dL (9-20); Calcium 9.1 mg/dL (8.4-10.2); Carbon Dioxide 23 mmol/L (22-32); Chloride 103 mmol/L (98-107); Estimated Glomerular Filt Rate 58 mL/min (>60); Glucose 112 mg/dL (80-110); HEMOLYSIS < 15 (0-50); Potassium 4.6 mmol/L (3.4-5.1); Sodium 135 mmol/L (137-145)
== END ==
PROVIDERS: PCP Family Medicine; Referring Provider Urology; Visit Provider Urology
DX: R79.89 Other specified abnormal findings of blood chemistry (principal)
CPT/HCPCS: 36415; 80048

== ENCOUNTER → 2023-10-15 17:39 | Outpatient (CLI) | payer MEDICARE, OTHER, SELFPAY ==
[2023-10-15 17:55] LABS: Appearance Urine UA CLOUDY; Bilirubin Urine UA NEGATIVE (NEGATIVE); Color Urine UA YELLOW; Glucose Urine UA NEGATIVE (Negative); Ketones Urine UA NEGATIVE (NEGATIVE); Leukocyte Esterase Urine UA 3+ (NEGATIVE); Nitrite Urine UA POSITIVE (Negative); Occult Blood Urine UA 1+ (Negative); Protein Urine UA 1+ (Negative); Urobilinogen Urine UA 0.2 E.U./dL (0.2); pH Urine UA 5.5 (4.5-8.0)
[2023-10-15 18:02] LABS: RBC Urine 0-1/HPF (0-5/HPF); Urine Volume 10mL (spun)
[2023-10-15 18:03] LABS: Bacteria Urine Many (>30); Culture Indicated Urine Specimen Cultured; Squamous Epithelial Cell Urine 0-1 /HPF (0-5/HPF); WBC Urine >100/HPF (0-5/HPF)
== END ==
LOC: LAB 17:40
PROVIDERS: PCP Family Medicine; Referring Provider Urology; Visit Provider Urology
DX: N31.2 Flaccid neuropathic bladder, not elsewhere classified (principal); N30.01 Acute cystitis with hematuria; R33.9 Retention of urine, unspecified; N13.30 Unspecified hydronephrosis; R39.9 Unspecified symptoms and signs involving the genitourinary system
CPT/HCPCS: 81001; 87077; 87086; 87186

== ENCOUNTER → 2023-10-28 11:57 | Outpatient (CLI) | payer MEDICARE, OTHER, SELFPAY ==
[2023-10-28 13:12] LABS: Blood Urea Nitrogen 40 mg/dL (9-20); Carbon Dioxide 22 mmol/L (22-32); Glucose 120 mg/dL (80-110); HEMOLYSIS < 15 (0-50)
[2023-10-28 13:18] LABS: Calcium 9.4 mg/dL (8.4-10.2); Chloride 103 mmol/L (98-107); Sodium 137 mmol/L (137-145)
[2023-10-28 13:20] LABS: BUN Creatinine Ratio 23.7 (6-22); Estimated Glomerular Filt Rate 42 mL/min (>60)
== END ==
PROVIDERS: PCP Family Medicine; Referring Provider Urology; Visit Provider Urology
DX: R79.89 Other specified abnormal findings of blood chemistry (principal)
CPT/HCPCS: 36415; 80048

== ENCOUNTER → 2023-11-15 09:18 | Outpatient (CLI) | payer MEDICARE, OTHER, SELFPAY ==
[2023-11-15 10:23] LABS: BUN Creatinine Ratio 25.6 (6-22); Blood Urea Nitrogen 34 mg/dL (9-20); Calcium 9.6 mg/dL (8.4-10.2); Carbon Dioxide 25 mmol/L (22-32); Chloride 103 mmol/L (98-107); Estimated Glomerular Filt Rate 56 mL/min (>60); Glucose 132 mg/dL (80-110); HEMOLYSIS < 15 (0-50); Potassium 4.2 mmol/L (3.4-5.1); Sodium 136 mmol/L (137-145)
== END ==
PROVIDERS: PCP Family Medicine; Referring Provider Urology; Visit Provider Urology
DX: R79.89 Other specified abnormal findings of blood chemistry (principal)
CPT/HCPCS: 36415; 80048

== ENCOUNTER → 2023-12-08 08:25 | Outpatient (CLI) | payer MEDICARE, OTHER, SELFPAY ==
[2023-12-08 09:49] LABS: Appearance Urine UA CLOUDY; Bilirubin Urine UA NEGATIVE (NEGATIVE); Color Urine UA YELLOW; Glucose Urine UA NEGATIVE (Negative); Ketones Urine UA NEGATIVE (NEGATIVE); Leukocyte Esterase Urine UA 3+ (NEGATIVE); Nitrite Urine UA NEGATIVE (Negative); Occult Blood Urine UA 1+ (Negative); Protein Urine UA NEGATIVE (Negative); Urobilinogen Urine UA 0.2 E.U./dL (0.2)
[2023-12-08 09:59] LABS: Bacteria Urine Many (>30); Culture Indicated Urine Specimen Cultured; RBC Urine 1-5/HPF (0-5/HPF); Squamous Epithelial Cell Urine 1-5 /HPF (0-5/HPF); Urine Volume 10mL (spun); WBC Urine 30-100/HPF (0-5/HPF)
[2023-12-08 10:16] LABS: BUN Creatinine Ratio 22.8 (6-22); Blood Urea Nitrogen 31 mg/dL (9-20); Calcium 9.5 mg/dL (8.4-10.2); Carbon Dioxide 25 mmol/L (22-32); Chloride 103 mmol/L (98-107); Estimated Glomerular Filt Rate 55 mL/min (>60); Glucose 128 mg/dL (80-110); HEMOLYSIS < 15 (0-50); Potassium 4.2 mmol/L (3.4-5.1); Sodium 136 mmol/L (137-145)
== END ==
PROVIDERS: PCP Family Medicine; Referring Provider Urology; Visit Provider Urology
DX: N30.01 Acute cystitis with hematuria (principal); R79.89 Other specified abnormal findings of blood chemistry
CPT/HCPCS: 36415; 80048; 81001; 87077; 87086; 87186

== ENCOUNTER → 2024-02-10 07:37 | Outpatient (CLI) | payer MEDICARE, OTHER, SELFPAY ==
[2023-12-23 09:58] VITALS: BMI 25.0
[2024-02-10 08:46] LABS: BUN Creatinine Ratio 19.8 (6-22); Blood Urea Nitrogen 25 mg/dL (9-20); Calcium 9.3 mg/dL (8.4-10.2); Carbon Dioxide 24 mmol/L (22-32); Chloride 104 mmol/L (98-107); Estimated Glomerular Filt Rate 59 mL/min (>60); Glucose 117 mg/dL (80-110); HEMOLYSIS < 15 (0-50); Potassium 4.5 mmol/L (3.4-5.1); Sodium 136 mmol/L (137-145)
== END ==
PROVIDERS: PCP Family Medicine; Referring Provider Urology; Visit Provider Urology
DX: R79.89 Other specified abnormal findings of blood chemistry (principal)
CPT/HCPCS: 36415; 80048

== ENCOUNTER 2024-03-23 13:17 | Day surgery (SDC) | payer MEDICARE, OTHER, SELFPAY ==
[2023-12-23 09:58] VITALS: BMI 25.0
[2024-03-23 13:41] VITALS: BP 165/86; PULSE 68; RESP 12; TEMP 36.5; O2SAT 100
--- NOTE | 2024-03-23 14:18 | PM.HP.1 ---
History of Present Illness History of Present Illness Date Patient Seen: 03/23/24 Time Patient Seen: 14:18 Chief complaint: [facility] [place] Narrative: Aaron is a 74-year-old man who is here for colonoscopy. His last 1 was in 2014 and he thinks 3 polyps were removed. ON LICENSE OF [facility] Medical History (Updated 03/23/24 @ 14:19 by Hany Riggs MD) Self-catheterizes urinary bladder Bladder mass History of kidney stones Hypotonic bladder Elevated serum creatinine History of hydronephrosis Urinary tract infection Retention of urine History of renal insufficiency Bilateral hydronephrosis History of tobacco use Secondhand smoke exposure Benign prostatic hyperplasia Lower urinary tract symptoms Incomplete emptying of bladder History of nephrolithotomy with removal of calculi Diabetes Medicare annual wellness visit, subsequent Left knee sprain Hiatal hernia GERD (gastroesophageal reflux disease) Hyperglycemia Hypertension Hyperlipidemia Surgical History (Updated 06/16/22 @ 09:31 by Vannesa Perry RN) Hx of cystoscopy (10/16/13) Family History Mother Diabetes mellitus Hypertension Eczema Father Diabetes mellitus Hypertension Sister Eczema Social History marital status: unmarried,single number of children: 0 household members: significant other Smoking Status: Former smoker alcohol intake: current Type(s) of exercise: walking frequency: daily Meds Home Medications and Allergies Home Medications Medication Instructions Recorded Confirmed Type MULTIVITAMIN (Multiple Vitamins 1 tab PO Q DAY ##0 02/02/12 02/11/24 History Daily) cholecalciferol (vit D3) 1,000 1 tab PO DAILY 02/03/22 02/11/24 History unit-vitamin K2 (MK4) 100 mcg tablet amlodipine 5 mg tablet 10 mg (2 x 5 mg) PO DAILY #180 tabs 09/10/23 03/23/24 Rx enalapril maleate 5 mg tablet 5 mg PO DAILY #90 tabs 01/12/24 03/23/24 Rx Allergies Allergy/AdvReac Type Severity Reaction Status Date / Time No Known Drug Allergies Allergy Verified 03/23/24 13:30 Exam Vital Signs (past 8 hours): - 03/23/24 13:41 Temperature 97.7 F Pulse Rate 68 Respiratory Rate 12 Blood Pressure 165/86 H Pulse Oximetry 100 Oxygen Delivery Method Room Air Oxygen Delivery Method Room Air Const General: healthy appearing Assessment & Plan Assessment and plan (1) History of colon polyps: Status: Acute Plan Colonoscopy Time-Based Coding :: [TOTAL MINUTES] spent with patient and on the chart (including review of chart, obtaining history, exam, reviewing outside data, placing orders, documenting exam and treatment plan, and counseling patient) on [DATE].
[2024-03-23 14:49] VITALS: BP 116/71; PULSE 63; RESP 19; TEMP 36.3; O2SAT 98
--- NOTE | 2024-03-23 14:50 | PM.OP.COLON ---
Operative Date/Time/Diagnoses Date of procedure: 03/23/24 Time of procedure: 14:50 Pre-op diagnosis: History of polyps Post-op diagnosis: same Procedure & Clinicians Study performed: Colonoscopy Same procedure as scheduled: Yes Surgeon: Hany Riggs Procedure Notes Procedure in detail: Surgeon: Hany Riggs MD Anesthesia: Elsa Garcia CRNA Procedure: The patient was brought to the endoscopy suite, placed in left lateral decubitus position. The patient was connected to monitoring devices. A time-out was performed. Sedation was administered. Once the patient was adequately sedated, a digital rectal exam was performed and was normal. The scope was then inserted and advanced to the cecum where the appendiceal orifice was identified and photographed. The scope was then slowly withdrawn over greater than 6 minutes. The mucosa was thoroughly inspected. No abnormalities were found. The scope was retroflexed in the rectum. The scope was straightened and removed. The patient was awakened and brought to recovery. Scope withdrawal time: 9 minutes Sedation time: 15 minute EBL: 0 Findings: Normal colon Post-procedure Disposition: PACU
[2024-03-23 14:55] VITALS: BP 133/89; PULSE 69; RESP 18; TEMP 36.4; O2SAT 98
== END 2024-03-23 15:15 | disposition home or self-care (01) ==
PROVIDERS: PCP Family Medicine; Referring Provider Surgery; Visit Provider Surgery
PROC: 0DJD8ZZ Inspection of Lower Intestinal Tract, Via Natural or Artificial Opening Endoscopic (ICD-10-PCS; CPT 45378; principal; 2024-03-23 14:30)
DX: Z12.11 Encounter for screening for malignant neoplasm of colon (principal); Z86.0100 Personal history of colon polyps, unspecified
CPT/HCPCS: G0105; J2405; J2704

== ENCOUNTER → 2024-05-11 08:24 | Outpatient (CLI) | payer MEDICARE, OTHER, SELFPAY ==
[2023-12-23 09:58] VITALS: BMI 25.0
[2024-05-11 09:03] LABS: BUN Creatinine Ratio 22.2 (6-22); Blood Urea Nitrogen 28 mg/dL (9-20); Calcium 9.4 mg/dL (8.4-10.2); Carbon Dioxide 24 mmol/L (22-32); Chloride 104 mmol/L (98-107); Estimated Glomerular Filt Rate 59 mL/min (>60); Glucose 135 mg/dL (80-110); HEMOLYSIS < 15 (0-50); Potassium 4.1 mmol/L (3.4-5.1); Sodium 137 mmol/L (137-145)
== END ==
LOC: LAB 08:25
PROVIDERS: PCP Family Medicine; Referring Provider Urology; Visit Provider Urology
DX: R79.89 Other specified abnormal findings of blood chemistry (principal)
CPT/HCPCS: 36415; 80048

== ENCOUNTER → 2024-09-22 12:09 | Outpatient (CLI) | payer MEDICARE, OTHER, SELFPAY ==
[2023-12-23 09:58] VITALS: BMI 25.0
[2024-09-22 13:17] LABS: BUN Creatinine Ratio 21.8 (6-22); Blood Urea Nitrogen 26 mg/dL (9-20); Calcium 9.4 mg/dL (8.4-10.2); Carbon Dioxide 23 mmol/L (22-32); Chloride 104 mmol/L (98-107); Estimated Glomerular Filt Rate > 60 mL/min (>60); Glucose 110 mg/dL (70-99); HEMOLYSIS < 15 (0-50); Potassium 4.4 mmol/L (3.4-5.1); Sodium 136 mmol/L (137-145)
== END ==
PROVIDERS: PCP Family Medicine; Referring Provider Urology; Visit Provider Urology
DX: R79.89 Other specified abnormal findings of blood chemistry (principal)
CPT/HCPCS: 80048

== ENCOUNTER → 2024-09-26 13:36 | Outpatient (CLI) | payer MEDICARE, OTHER, SELFPAY ==
[2023-12-23 09:58] VITALS: BMI 25.0
[2024-09-26 14:32] LABS: Add Manual Diff / Slide Review NO; Basophils Absolute Auto 100 /uL (0-100); Basophils Percent Auto 1.1 % (0-2); Eosinophils Absolute Auto 100 /uL (0-450); Eosinophils Percent Auto 2.3 % (2-4); Hematocrit 38.4 % (41-53); Lymphocytes Absolute Auto 2100 /uL (1100-4500); Lymphocytes Percent Auto 42.5 % (25-40); Mean Corpuscular HGB Conc 33.8 % (30-36); Mean Corpuscular Hemoglobin 31.7 PG (26-34); Mean Corpuscular Volume 93.9 fL (80-100); Monocytes Absolute Auto 600 /uL (0-900); Monocytes Percent Auto 11.7 % (3-14); Neutrophils Absolute Auto 2100 /uL (1500-7000); Neutrophils Percent Auto 42.4 % (50-75); Platelet Count 189 X10^3/uL (150-400); Red Blood Cell Count 4.08 X10^6/uL (4.5-5.9); Red Cell Distribution Width 14.4 % (11.6-14.8)
[2024-09-26 15:17] LABS: Cholesterol 185 mg/dL (140-199); HDL Cholesterol 65 mg/dL (40-60); LDL Cholesterol Calculated 108 mg/dL (<100); Triglycerides 62 mg/dL (35-150)
[2024-09-26 15:18] LABS: Hemoglobin A1C% w Est Avg Glu 5.2 % (4.0-6.0)
[2024-09-26 15:42] LABS: Rubella Antibody IgG > 350.0 IU/mL (>15)
[2024-09-26 15:46] LABS: Prostate Specific Antigen Scrn 0.567 ng/mL (0.1-4.0); TSH w/ Reflex to FT4 2.08 uIU/mL (0.47-4.68)
[2024-09-28 02:10] LABS: Rubeola Measles IgG > 300.0 AU/mL (Immune >16.4)
== END ==
PROVIDERS: PCP Family Medicine; Referring Provider Family Medicine; Visit Provider Family Medicine
DX: Z00.00 Encounter for general adult medical examination without abnormal findings (principal); E11.9 Type 2 diabetes mellitus without complications; Z12.5 Encounter for screening for malignant neoplasm of prostate; I10 Essential (primary) hypertension; Z01.84 Encounter for antibody response examination
CPT/HCPCS: 36415; 80061; 83036; 84443; 85025; 86735; 86762; 86765; G0103

== ENCOUNTER → 2024-09-27 11:27 | Outpatient (CLI) | payer MEDICARE, OTHER, SELFPAY ==
[2023-12-23 09:58] VITALS: BMI 25.0
[2024-09-27 17:28] LABS: Creatinine Urine Random 95.83 mg/dL
[2024-09-27 17:33] LABS: Microalbumin Urine Random 0.7 mg/dL (0-1.6)
== END ==
PROVIDERS: PCP Family Medicine; Referring Provider Family Medicine; Visit Provider Family Medicine
DX: Z00.00 Encounter for general adult medical examination without abnormal findings (principal); E11.9 Type 2 diabetes mellitus without complications; I10 Essential (primary) hypertension
CPT/HCPCS: 82043; 82570

== ENCOUNTER → 2025-02-16 10:53 | Outpatient (CLI) | payer MEDICARE, OTHER, SELFPAY ==
[2023-12-23 09:58] VITALS: BMI 25.0
[2025-02-16 11:58] LABS: Blood Urea Nitrogen 24 mg/dL (9-20); Calcium 9.2 mg/dL (8.4-10.2); Carbon Dioxide 24 mmol/L (22-32); Chloride 104 mmol/L (98-107); Estimated Glomerular Filt Rate > 60 mL/min (>60); Glucose 119 mg/dL (70-99); HEMOLYSIS < 15 (0-50); Potassium 4.4 mmol/L (3.4-5.1); Sodium 137 mmol/L (137-145)
== END ==
PROVIDERS: Urology; PCP Family Medicine; Referring Provider Family Medicine; Visit Provider Family Medicine
DX: R79.89 Other specified abnormal findings of blood chemistry (principal)
CPT/HCPCS: 36415; 80048